=== PATIENT | male | born 1930 | race Caucasian/White ===

== ENCOUNTER 2018-05-21 07:01 | Inpatient (IN) | payer OTHER ==
--- NOTE | 2018-05-21 07:52 | PDOC ---
Attending Attestation - Resident Resident Name: Latesha Cooley - HPI HPI: 05/21/18 08:18 Pt presents to the ED after sent in by [place] for altered mental status and difficulty breathing. Patient has a history of alzheimers, HTN, CHF and COPD. Non verbal and incontient of urine and feces at baseline. Patient withdraws to sternal rub but does not open eyes or follow commands. Unable to give history. 05/21/18 09:35 05/21/18 09:40 - Physicial Exam PE: 05/21/18 09:44 Agree with resident exam. Patinet is lethargic and withdraws to sternal rub. + crackles at the bases b/l. Heart tachycardic, regular rate and rhythm. abdomen soft, non tender, non distended. + 2 pitting edema to mid calf b/l. 05/21/18 09:47 - Critical Care Time Total Critical Care Time: 60 Critical Care Statement: The care of this patient involved high complexity decision making to prevent further life threatening deterioration of the patient 's condition and/or to evaluate & treat vital organ system(s) failure or risk of failure. - Medical Decision Making 05/21/18 09:48 Pt presents to the ED after sent in for altered mental status. Found to be febrile and lethargic in the ED. 1. sepsis: lactate is normal, but patient has elevated WBC count and fever. Will check blood and urine cx and treat with vancomycin and zosyn. 2. acidosis: bicarb is normal, no anion gap. May be respiratory--will check ABG 3. Altered mental status: secondary to sepsis vs intracranial lession or bleed. Will check CT head. Will admit to medicine for continued work up; 05/21/18 14:09 Case discussed with ICU attending, who has accepted the patient to the ICU. Patient
[2018-05-21] MEDS ORDERED: ACETAMINOPHEN 1000 MG/100 ML VIAL (NON FORMULARY) IVPB ONE (08:00)
[2018-05-21] MEDS ORDERED: ACETAMINOPHEN INJECTION 100 ML IVPB ONE (08:09)
[2018-05-21 08:32] LABS: VENOUS PC02 66.7 mmHg (38-52); VENOUS PH 7.25 (7.32-7.42); VENOUS PO2 94.9 mmHg (28-48)
[2018-05-21 08:40] LABS: BASO % 0.2 % (0-2.0); EOS % 0.1 % (0-4.5); HEMATOCRIT 30.1 % (35.4-49); HEMOGLOBIN 10.2 GM/dL (11.7-16.9); LYMPH % 2.5 % (8-40); MCH 31.4 pg (25.7-33.7); MCHC 33.8 g/dl (32.0-35.9); MEAN CELL VOLUME 92.9 fl (80-96); MEAN PLT VOLUME 9.4 fl (7.5-11.1); MONO % 10.4 % (3.8-10.2); NEUT % 86.8 % (42.8-82.8); PLATELET COUNT 112 K/MM3 (134-434); RBC 3.24 M/mm3 (4.00-5.60); RDW 18.2 % (11.9-15.9)
[2018-05-21 08:47] LABS: INR 1.05 (0.83-1.09); PROTHROMBIN TIME (PATIENT) 12.4 SEC (9.7-13.0)
[2018-05-21 08:50] LABS: ACTIVATED PTT 31.1 SECONDS (25.2-36.5)
[2018-05-21 08:57] LABS: ALK PHOS 122 U/L (45-117); ANION GAP 9 MMOL/L (8-16); BILIRUBIN,TOTAL 0.6 mg/dL (0.2-1); BLOOD UREA NITROGEN 59 mg/dL (7-18); CALCIUM 8.2 mg/dL (8.5-10.1); CHLORIDE 103 mmol/L (98-107); CO2 28 mmol/L (21-32); CREATININE 2.2 mg/dL (0.55-1.3); GLUCOSE,RANDOM 101 mg/dL (74-106); POTASSIUM 4.5 mmol/L (3.5-5.1); SGOT/AST 16 U/L (15-37); SGPT/ALT 25 U/L (13-61); SODIUM 139 mmol/L (136-145); TOT PROT 6.4 g/dl (6.4-8.2)
--- NOTE | 2018-05-21 09:00 | PDOC ---
History of Present Illness - General Chief Complaint: SIRS, Suspected/Possible Stated Complaint: FEVER Time Seen by Provider: 05/21/18 07:28 History Source: Family - History of Present Illness Initial Comments: 05/21/18 08:48 87 year old patient with history HTN, COPD, CHF, severe Alzheimers who presents with altered mental status and low grade fever per nursing staff. The patient had worsening chronic cough, decreased urine production and darkening of the urine, more lethargic appearing and opening his eyes less. At baseline the patient is minimally verbal but can open his eyes and is alert. 05/21/18 08:50 [facility] contacted: provided information the patient has HTN, COPD, CHF and severe Alzheimers, is very minimally verbal, and required assistance in all ADLS by nursing. The patient was brought into the ED as he was less responsive, breathing heavily and had a low grade temp. The patient was previously a surgeon. Medications include: cold - robutussin for 5 day nidfedeipine 60 seroquel 50mg memantine/dop atrovent neb bid at bedside is not sure whether is DNR or DNI would like us to call the pt' s son. Past History - Past Medical History Allergies/Adverse Reactions: Allergies Allergy/AdvReac Type Severity Reaction Status Date / Time No Known Allergies Allergy Verified 05/21/18 07:20 Home Medications: Ambulatory Orders Cholecalciferol (Vitamin D3) [Vitamin D3] 400 unit PO DAILY 05/21/18 Donepezil HCl 10 mg PO HS 05/21/18 Ferrous Sulfate [Iron] 325 mg PO BID 05/21/18 Guaifenesin 100 mg PO BID 05/21/18 Ipratropium [place] 0.2 mg IH DAILY 05/21/18 Nifedipine [Nifedipine ER] 60 mg PO DAILY 05/21/18 Psyllium Husk (with Sugar) [Metamucil Packet] 3.4 gm PO DAILY 05/21/18 Quetiapine Fumarate [Quetiapine Fumarate ER] 50 mg PO DAILY 05/21/18 Cardiac Disorders: Yes (CAD) COPD: No CHF: Yes HTN: Yes Hypercholesterolemia: Yes Psychiatric Problems: Yes (depression) - Suicide/Smoking/Psychosocial Hx Smoking History: Unknown if ever smoked Have you smoked in the past 12 months: No Information on smoking cessation initiated: No Hx Alcohol Use: No Drug/Substance Use Hx: No Substance Use Type: None Review of Systems - Review of Systems Able to Perform ROS?: No (altered) *Physical Exam - Vital Signs Last Vital Signs Temp Pulse Resp BP Pulse Ox 90 26 H 131/77 100 05/21/18 07:21 05/21/18 07:21 05/21/18 07:21 05/21/18 07:21 - Physical Exam Comments: 05/21/18 09:09 GENERAL: Altered, unresponsive, can arouse minimally to sternal rub HEAD: No signs of trauma, normocephalic, atraumatic EYES: pinpoint nonreactive to light, sclera anicteric, conjunctiva clear, crusting around the eyelids ENT: oropharynx clear without exudates. Moist mucosa NECK: Normal ROM, supple LUNGS: coarse breath sounds and crackles in all lobes anteriorly. HEART: distant heart sounds, no murmurs, rubs or gallops, peripheral pulses normal and equal bilaterally. ABDOMEN: Soft, nontender, normoactive bowel sounds. No guarding, no rebound. No masses EXTREMITIES : 1+ pitting in knees to ankles bilaterally, palpable pulses NEUROLOGICAL: Unresponsive. SKIN: Dry, normal turgor, no rashes or lesions noted ED Treatment Course - LABORATORY CBC & Chemistry Diagram: 05/22/18 05:30 05/22/18 05:30 - ADDITIONAL ORDERS Additional order review: Laboratory Results 05/21/18 05/21/18 08:07 08:07 PT with INR 12.40 INR 1.05 VBG pH 7.25 L POC VBG pCO2 66.7 H* POC VBG pO2 94.9 H Mixed VBG HCO3 27.9 H - RADIOLOGY Radiology Studies Ordered: Category Date Time Status CHEST X-RAY PORTABLE* [RAD] Stat Radiology 05/21/18 07:28 Taken - Medications Given in the ED: ED Medications Discontinued Medications Generic Name Dose Route Start Last Admin Trade Name Freq PRN Reason Stop Dose Admin Acetaminophen 1,000 mg 05/21/18 08:00 05/21/18 08:15 Ofirmev Injection - IVPB 05/21/18 08:01 1,000 mg ONCE ONE Administration Medical Decision Making - Medical Decision Making 05/21/18 09:08 87 year old patient with history HTN, COPD, CHF, severe Alzheimers who presents with altered mental status and low grade fever per nursing staff. The patient had worsening chronic cough, decreased urine production and darkening of the urine, more lethargic appearing and opening his eyes less. At baseline the patient is minimally verbal but can open his eyes and is alert. DDX including but not limited to: hypogylcemia vs intracranial bleed vs UTI vs PNA vs electrolyes abnormality W/U: - head CT - cbc, cmp, lactic, trop, blood cx, PT/INR, PTT - CXR - ua, ucx TX: - duoneb ED Course: Patient received duoneb treatment en route. 05/21/18 10:11 CXR: R upper lobe infiltrate, cardiomegaly and central congestive changes. Vancomycin and Zosyn given 05/21/18 12:00 patient with hematuria - alejandro placed by attending Attending discussed case with ICU. Will have patient with BIPAP for bridging and go to ICU floor. BIPAP: 16/5, 12, 60% 05/21/18 12:48 Dr. Malagon contacted will accept patient. Will come down to see patient. Notes that DNR and DNI has been an issue with this patient and family. Patient becoming more alert. Alejandro placed by attending without complications. Patient clinically showing some improvement. Patient admitted to medicine and ICU. *DC/Admit/Observation/Transfer Diagnosis at time of Disposition: Altered mental status - Discharge Dispostion Condition at time of disposition: Stable Decision to Admit order: Yes - Referrals - Patient Instructions - Post Discharge Activity
[2018-05-21] MEDS ORDERED: PIPERACILLIN/TAZOB 3.375 GM 3.375 GM in DEXTROSE 5%-WATER - 50 ML IVPB ONE (09:46)
[2018-05-21 10:14] LABS: ARTERIAL BLD GAS O2 SATURATION 97.5 % (90-98.9); ARTERIAL BLOOD GAS PCO2 58.6 mmHg (35-45); ARTERIAL BLOOD GAS pH 7.29 (7.35-7.45)
[2018-05-21 10:15] LABS: ARTERIAL BLOOD GAS BASE EXCESS 0.1 meq/l (-2-2); CARBOXYHEMOGLOBIN 0.8 gm% (0.5-2.0)
[2018-05-21 10:43] LABS: N-TERMINAL BNP 3620.6 pg/ml (5-450)
[2018-05-21] MEDS ORDERED: PIPERACILLIN/TAZOB 3.375 GM 3.375 GM/50 ML BAG IVPB ONE ×2 (10:51→18:04)
[2018-05-21] MEDS ORDERED: ALBUTEROL SO4 2.5/IPRATROPIUM 0.5 INH SOL 3 ML VIAL.NEB. NEB ONE ×5 (11:13→20:18)
[2018-05-21] MEDS ORDERED: methylPREDNISolone NA SUCC 125 MG/2 ML VIAL ONE ×2 (11:19→18:04)
[2018-05-21] MEDS ORDERED: VANCOMYCIN 1 GRAM (PRE-DOCKED) 1,000 MG/250 ML BAG IVPB ONE (11:25)
[2018-05-21 12:34] LABS: URINE APPEARANCE CLOUDY; URINE BILIRUBIN NEGATIVE (<2.0 mg/dL); URINE COLOR YELLOW; URINE GLUCOSE (UA) NEGATIVE (NEGATIVE); URINE KETONE NEGATIVE (NEGATIVE); URINE LEUK ESTERASE NEGATIVE (NEGATIVE); URINE NITRITE NEGATIVE (NEGATIVE); URINE PROTEIN 2+ (NEGATIVE); URINE UROBILINOGEN NEGATIVE mg/dL (0.2-1.0)
--- NOTE | 2018-05-21 12:34 | EKG ---
Test Reason : Blood Pressure : / mmHG Vent. Rate : 069 BPM Atrial Rate : 069 BPM P-R Int : 212 ms QRS Dur : 126 ms QT Int : 406 ms P-R-T Axes : -01 -01 012 degrees QTc Int : 435 ms SINUS RHYTHM WITH 1ST DEGREE A-V BLOCK RIGHT BUNDLE BRANCH BLOCK ABNORMAL ECG NO PREVIOUS ECGS AVAILABLE Confirmed by JC SOTOMAYOR MD ([id number]) on 05/21/2018 12:34:03 PM Referred By: Confirmed By:JC SOTOMAYOR MD
[2018-05-21 12:51] LABS: URINE MUCUS RARE
--- NOTE | 2018-05-21 14:49 | HP ---
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 EMS was called and patient was transfered to [facility]. Staff contacted, patient was at baseline yesterday, he is minimally verbal, and sleeps many hours during the day. There was no hx of fever / chills / or progressive deterioration. 05/21/18 08:50 [facility] contacted: Information obtained from staff: The patient has HTN, COPD, CHF and severe Alzheimers, is very minimally verbal, and required assistance in all ADLS by nursing. The patient was brought into the ED as he was less responsive, breathing heavily and had a low grade temp. The patient was previously a surgeon. Medications include: cold - robutussin for 5 day nidfedeipine 60 seroquel 50mg memantine/dop atrovent neb bid at bedside is not sure whether is DNR or DNI would like us to call the pt' s son. History Source: Family Member, Medical Record, Transfer Record Limitations to Obtaining History: Dementia - Past Medical History PRESSURE WELDER: Yes: Dementia Pulmonary: Yes: COPD - Smoking History Smoking history: Unknown if ever smoked Have you smoked in the past 12 months: No - Alcohol/Substance Use Hx Alcohol Use: No History of Substance Use: reports: None - Social History Usual Living Arrangement: Yes: Assisted Living ADL: Support Services History of Recent Travel: No Home Medications - Allergies Allergies/Adverse Reactions: Allergies Allergy/AdvReac Type Severity Reaction Status Date / Time No Known Allergies Allergy Verified 05/21/18 07:20 - Home Medications Home Medications: Ambulatory Orders Cholecalciferol (Vitamin D3) [Vitamin D3] 400 unit PO DAILY 05/21/18 Donepezil HCl 10 mg PO HS 05/21/18 Ferrous Sulfate [Iron] 325 mg PO BID 05/21/18 Guaifenesin 100 mg PO BID 05/21/18 Ipratropium [place] 0.2 mg IH DAILY 05/21/18 Nifedipine [Nifedipine ER] 60 mg PO DAILY 05/21/18 Psyllium Husk (with Sugar) [Metamucil Packet] 3.4 gm PO DAILY 05/21/18 Quetiapine Fumarate [Quetiapine Fumarate ER] 50 mg PO DAILY 05/21/18 Review of Systems Unable to obtain ROS, reason: dementia - - Review of Systems Constitutional: denies: Chills, Fever, Night Sweats Eyes: reports: No Symptoms HENT: reports: No Symptoms Neck: reports: No Symptoms Respiratory: reports: Cough (unclear), SOB Neurological: reports: Pre-Existing Deficit Physical Examination Vital Signs: Vital Signs Temperature 101.5 F H 05/21/18 07:28 Pulse Rate 60 05/21/18 14:14 Respiratory Rate 18 05/21/18 14:14 Blood Pressure 129/56 L 05/21/18 14:14 O2 Sat by Pulse Oximetry (%) 95 05/21/18 14:14 Findings/Remarks: patient seen in ER Bipap in place O2 tapered to 60% with sats 99 -100% and caregiver at bed side hx obtained from / [facility] at [facility] / aide reports signed a DNR yrs ago when clear of mind she is awaiting patients son to make advance directives Constitutional: Yes: Well Nourished, No Distress, Calm, Other (bipap in place) Eyes: Yes: WNL HENT: Yes: WNL, Atraumatic, Normocephalic Neck: Yes: Supple, Trachea Midline Cardiovascular: Yes: Regular Rate and Rhythm Respiratory: Yes: Diminished, On BiPap Gastrointestinal: Yes: Normal Bowel Sounds, Soft, Abdomen, Obese ...Rectal Exam: Yes: Deferred Renal/: Yes: WNL Breast(s): Yes: WNL Musculoskeletal: Yes: Other (at baseline wheelchair bound) Edema: Yes Edema: LLE: 1+, RLE: 1+ Peripheral Pulses WNL: Yes Integumentary: Yes: WNL Neurological: Yes: Pre-Existing Deficit Labs: CBC, BMP 05/21/18 08:07 05/21/18 08:07 Problem List - Problems (1) Aspiration pneumonia of right lung Code(s): J69.0 - PNEUMONITIS DUE TO INHALATION OF FOOD AND VOMIT (2) COPD (chronic obstructive pulmonary disease) Code(s): J44.9 - CHRONIC OBSTRUCTIVE PULMONARY DISEASE, UNSPECIFIED (3) Dementia Code(s): F03.90 - UNSPECIFIED DEMENTIA WITHOUT BEHAVIORAL DISTURBANCE (4) Hypertension Code(s): I10 - ESSENTIAL (PRIMARY) HYPERTENSION
[2018-05-21] MEDS ORDERED: AZITHROMYCIN IVPB 500 MG/250 ML BAG IVPB ONE ×2 (15:15→16:18)
--- NOTE | 2018-05-21 15:32 | CON.ID ---
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's disease, now in the dementia unit for the last one year worsening mental status over the last one month he has a 24 hour aides mainly uses a wheelchair on he was very weak, yesterday he was lethargic this morning the aide couldn't arouse him and they called 911 in the ED he had a temp of 101.5 and was hypercapneic and hypoxic with a RUL infiltrate currently on bipap 60% +incontinence at baseline, needs help with ADLS occasionally recognizes his had not been hospitalized for several years - History Source History Provided By: Family Member Limitations to Obtaining History: Clinical Condition - Past Medical History 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 Cardio/Vascular: Yes: CHF, HTN Pulmonary: Yes: COPD - Alcohol/Substance Use Hx Alcohol Use: No History of Substance Use: reports: None - Smoking History Smoking history: Unknown if ever smoked Have you smoked in the past 12 months: No - Social History Usual Living Arrangement: Assisted Living ADL: Support Services Occupation: retired physician History of Recent Travel: No Home Medications - Allergies Allergies/Adverse Reactions: Allergies Allergy/AdvReac Type Severity Reaction Status Date / Time No Known Allergies Allergy Verified 05/21/18 07:20 - Home Medications Home Medications: Ambulatory Orders Cholecalciferol (Vitamin D3) [Vitamin D3] 400 unit PO DAILY 05/21/18 Donepezil HCl 10 mg PO HS 05/21/18 Ferrous Sulfate [Iron] 325 mg PO BID 05/21/18 Guaifenesin 100 mg PO BID 05/21/18 Ipratropium [place] 0.2 mg IH DAILY 05/21/18 Nifedipine [Nifedipine ER] 60 mg PO DAILY 05/21/18 Psyllium Husk (with Sugar) [Metamucil Packet] 3.4 gm PO DAILY 05/21/18 Quetiapine Fumarate [Quetiapine Fumarate ER] 50 mg PO DAILY 05/21/18 Family Disease History - Family Disease History Family History: Unable to Obtain Review of Systems - Review of Systems Constitutional: reports: Lethargy Cardiovascular: reports: Chest Pain Respiratory: reports: SOB Physical Exam Vital Signs: Vital Signs Temperature 98.0 F 05/21/18 15:12 Pulse Rate 63 05/21/18 15:12 Respiratory Rate 18 05/21/18 15:12 Blood Pressure 126/51 L 05/21/18 15:12 O2 Sat by Pulse Oximetry (%) 98 05/21/18 15:12 Constitutional: Yes: Well Nourished, No Distress Eyes: Yes: Conjunctiva Clear HENT: Yes: Atraumatic, Normocephalic Neck: Yes: Supple Cardiovascular: Yes: Regular Rate and Rhythm Respiratory: Yes: Diminished, Wheezes Gastrointestinal: Yes: Normal Bowel Sounds, Soft. No: Tenderness ...Rectal Exam: Yes: Deferred Edema: Yes Edema: LLE: Trace, RLE: Trace Labs: CBC, BMP 05/21/18 08:07 05/21/18 08:07 Imaging - Results Chest X-ray: Report Reviewed, Image Reviewed Cat Scan: Report Reviewed Problem List - Problems (1) Aspiration pneumonia of right lung Code(s): J69.0 - PNEUMONITIS DUE TO INHALATION OF FOOD AND VOMIT (2) Respiratory failure with hypoxia and hypercapnia Code(s): J96.91 - RESPIRATORY FAILURE, UNSPECIFIED WITH HYPOXIA; J96.92 - RESPIRATORY FAILURE, UNSPECIFIED WITH HYPERCAPNIA (3) Dementia Code(s): F03.90 - UNSPECIFIED DEMENTIA WITHOUT BEHAVIORAL DISTURBANCE (4) NATE (acute kidney injury) Code(s): N17.9 - ACUTE KIDNEY FAILURE, UNSPECIFIED Assessment/Plan hypoxemic/hypercapneic resp failure- on bipap aspiration pneumonia continue zosyn add zithromax severe progressive dementia nate cultures legionella urinary antigen d/w Dr Allred
[2018-05-21] MEDS ORDERED: DEXTROSE 5%-0.45% SALINE 1,000 ML IV SCH (15:45)
[2018-05-21] MEDS ORDERED: ALBUTEROL SO4 2.5/IPRATROPIUM 0.5 INH SOL 3 ML VIAL.NEB. NEB PRN (15:48)
[2018-05-21] MEDS: ALBUTEROL SO4 2.5/IPRATROPIUM 0.5 INH SOL 3 ML VIAL.NEB. NEB SCH ×2 (16:34→20:22)
[2018-05-21] MEDS: methylPREDNISolone NA SUCC 125 MG/2 ML VIAL IVPUSH SCH (18:07)
[2018-05-21] MEDS: PIPERACILLIN/TAZOB 3.375 GM 3.375 GM in DEXTROSE 5%-WATER - 50 ML IVPB SCH (18:07)
--- NOTE | 2018-05-21 21:11 | PN ---
Progress Note (short form) - Note Progress Note: Mohan I had the opportunity to speak with the Surrogate of Highest Order, Marlin Garcia, of Mr Sesay in the presence and with the support of close family members including his son and daughter. Based on previously stated wishes and with best interest standard in mind, the family in consensus have decided to make him DNR/DNI. They ask that current treatment be maintained, that a 24hr trial of NIV be continued but that he not undergo any more advanced life saving measures should he deteriorate. They asked that his comfort be of the highest priority and that they be notified of his status and condition should there be significant changes. All questions were answered. DNR/DNI order placed. Ad Blount ACNP [id number]
--- NOTE | 2018-05-21 21:31 | CONSULT ---
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 He was placed on NIVPPV, HCAP coverage, and nebs and steroids. There was conversations with family regarding GOC, he is now DNR/DNI but with current care continuing. Ambulatory Order Cholecalciferol (Vitamin D3) [Vitamin D3] 400 unit PO DAILY 05/21/18 Donepezil HCl 10 mg PO HS 05/21/18 Ferrous Sulfate [Iron] 325 mg PO BID 05/21/18 Guaifenesin 100 mg PO BID 05/21/18 Ipratropium Springer 0.2 mg IH DAILY 05/21/18 Nifedipine [Nifedipine ER] 60 mg PO DAILY 05/21/18 Psyllium Husk (with Sugar) [Metamucil Packet] 3.4 gm PO DAILY 05/21/18 Quetiapine Fumarate [Quetiapine Fumarate ER] 50 mg PO DAILY 05/21/18 Social History Smoking history Unknown if ever smoked Have you smoked in the past 12 No months Hx Alcohol Use No History of Substance Use None Usual Living Arrangement Assisted Living ADL Support Services Occupation retired physician Past Medical History TRAINING EXECUTIVE Dementia Cardio/Vascular CHF,HTN Pulmonary COPD Family hx non contrib. Lab Results WBC 17.0 K/mm3 (4.0-10.0) H 05/21/18 08:07 RBC 3.24 M/mm3 (4.00-5.60) L 05/21/18 08:07 Hgb 10.2 GM/dL (11.7-16.9) L 05/21/18 08:07 Hct 30.1 % (35.4-49) L 05/21/18 08:07 MCV 92.9 fl (80-96) 05/21/18 08:07 MCHC 33.8 g/dl (32.0-35.9) 05/21/18 08:07 RDW 18.2 % (11.9-15.9) H 05/21/18 08:07 Plt Count 112 K/MM3 (134-434) L 05/21/18 08:07 Sodium 139 mmol/L (136-145) 05/21/18 08:07 Potassium 4.5 mmol/L (3.5-5.1) 05/21/18 08:07 Chloride 103 mmol/L (98-107) 05/21/18 08:07 Carbon Dioxide 28 mmol/L (21-32) 05/21/18 08:07 Anion Gap 9 MMOL/L (8-16) 05/21/18 08:07 BUN 59 mg/dL (7-18) H 05/21/18 08:07 Creatinine 2.2 mg/dL (0.55-1.3) H 05/21/18 08:07 Random Glucose 101 mg/dL (74-106) 05/21/18 08:07 Calcium 8.2 mg/dL (8.5-10.1) L 05/21/18 08:07 INR 1.05 (0.83-1.09) 05/21/18 08:07 ABG Results ABG pH 7.29 (7.35-7.45) L 05/21/18 09:54 ABG pCO2 at Pt Temp 58.6 mmHg (35-45) H 05/21/18 09:54 ABG pO2 at Pt Temp 175.0 mmHg (68-100) H* 05/21/18 09:54 ABG HCO3 27.1 meq/L (22-26) H 05/21/18 09:54 ABG O2 Sat (Measured) 97.5 % (90-98.9) 05/21/18 09:54 ABG O2 Content 14.9 % vol (15-22) L 05/21/18 09:54 ABG Base Excess 0.1 meq/l (-2-2) 05/21/18 09:54 Medications include: cold - robutussin for 5 day nidfedeipine 60 seroquel 50mg memantine/dop atrovent neb bid Current Medications Albuterol/Ipratropium (Duoneb -) 1 amp NEB Q4H PRN PRN Reason: SHORTNESS OF BREATH Albuterol/Ipratropium (Duoneb -) 1 amp NEB RQID DESTINEE Last Admin: 05/21/18 20:22 Dose: 1 amp Heparin Sodium (Porcine) (Heparin -) 5,000 unit SQ TID DESTINEE Piperacillin Sod/Tazobactam (Sod 3.375 gm/ Dextrose) 50 mls @ 100 mls/hr IVPB Q8H-IV DESTINEE; Protocol Last Admin: 05/21/18 18:07 Dose: 100 mls/hr Dextrose/Sodium Chloride (D5-1/2ns -) 1,000 mls @ 100 mls/hr IV ASDIR DESTINEE Last Admin: 05/21/18 16:34 Dose: 100 mls/hr Methylprednisolone Sodium Succinate (Solu-Medrol -) 60 mg IVPUSH Q8H-IV DESTINEE Last Admin: 05/21/18 18:07 Dose: 60 mg Pantoprazole Sodium (Protonix Iv) 40 mg IVPUSH DAILY [facility] CXR : image reviewed EKG: ST, no acute ischemic changes PE: Gen: eld man, obtunded on NIV HEENT: PERRL, trach midline, supple CV; RRR, no m/r/g appreciated Pulm: few coarse crackles, no wheezes ABD: obese, soft EXT: 2+ dependent edema Neuro: poorly responsive, withdrawals bilaterally A/ 87 y/o man, advanced dementia, p/w multifocal pneumonia and respiratory failure, made DNR/DNI P/ -cont NIV, will remove in am and palliate if in distress as per family wishes -duonebs q4 hrs and prn -cont medrol -gentle diuresis, monitor Cr -Vanc and PT as per ID -HC bid -DNR/DNI -SCD ICU monitoring Jose Alejandro GUEVARAP [id number] 35min CCT
[2018-05-21] MEDS ORDERED: FUROSEMIDE 40 MG/4 ML INJECTABLE VIAL IVPUSH ONE (21:50)
[2018-05-21] MEDS ORDERED: PIPERACILLIN/TAZOBACTAM 3.375 GM VIAL IVPB ONE (21:56)
[2018-05-21] MEDS ORDERED: DEXTROSE 5%-WATER - 50 ML IVPB ONE (21:57)
[2018-05-21] MEDS: HEPARIN NA (PORCINE) 5,000 UNITS/ML 1ML VIAL SQ SCH (21:59)
[2018-05-22] MEDS ORDERED: PIPERACILLIN/TAZOBACTAM 3.375 GM VIAL IVPB ONE ×2 (00:48→11:42)
[2018-05-22] MEDS ORDERED: DEXTROSE 5%-WATER - 50 ML IVPB ONE ×2 (00:48→11:43)
[2018-05-22] MEDS: methylPREDNISolone NA SUCC 125 MG/2 ML VIAL IVPUSH SCH ×3 (01:05→17:34)
[2018-05-22] MEDS: PIPERACILLIN/TAZOB 3.375 GM 3.375 GM in DEXTROSE 5%-WATER - 50 ML IVPB SCH ×2 (01:05→11:46)
[2018-05-22] MEDS: HEPARIN NA (PORCINE) 5,000 UNITS/ML 1ML VIAL SQ SCH ×3 (05:44→21:18)
[2018-05-22 06:22] LABS: ALBUMIN 2.8 g/dl (3.4-5.0); ALK PHOS 110 U/L (45-117); ANION GAP 6 MMOL/L (8-16); BILIRUBIN,TOTAL 0.6 mg/dL (0.2-1); BLOOD UREA NITROGEN 62 mg/dL (7-18); CALCIUM 8.1 mg/dL (8.5-10.1); CHLORIDE 101 mmol/L (98-107); CO2 31 mmol/L (21-32); CREATININE 2.5 mg/dL (0.55-1.3); GLUCOSE,RANDOM 137 mg/dL (74-106); POTASSIUM 4.9 mmol/L (3.5-5.1); SGOT/AST 13 U/L (15-37); SGPT/ALT 25 U/L (13-61); SODIUM 138 mmol/L (136-145); TOT PROT 6.6 g/dl (6.4-8.2)
[2018-05-22 07:17] LABS: HEMATOCRIT 30.8 % (35.4-49); HEMOGLOBIN 10.3 GM/dL (11.7-16.9); MCH 31.5 pg (25.7-33.7); MCHC 33.3 g/dl (32.0-35.9); MEAN CELL VOLUME 94.5 fl (80-96); MEAN PLT VOLUME 10.1 fl (7.5-11.1); PLATELET COUNT 100 K/MM3 (134-434); RBC 3.26 M/mm3 (4.00-5.60); RDW 18.1 % (11.9-15.9); WHITE BLOOD COUNT 25.8 K/mm3 (4.0-10.0)
[2018-05-22] MEDS: ALBUTEROL SO4 2.5/IPRATROPIUM 0.5 INH SOL 3 ML VIAL.NEB. NEB SCH ×4 (07:30→20:35)
--- NOTE | 2018-05-22 08:43 | PN ---
Progress Note (short form) - Note Progress Note: Pulm/CCM Progress Note Pt seen and examined in the ICU 24Hr; -wbc rising -on NIV overnight, taken off this am for pooling oral secretions -still with increases wob -Cr rising, with diuretics -DNR/DNI after discussion with family/ -afebrile, stable hemodynamics Vital Signs Temp 97.4 F L 05/22/18 02:00 Pulse 73 05/22/18 06:00 Resp 24 H 05/22/18 06:00 BP 147/77 05/22/18 06:00 Pulse Ox 99 05/22/18 05:34 Intake & Output 05/21/18 05/21/18 05/22/18 11:59 23:59 10:59 Intake Total 20 50 Output Total 100 800 Balance -80 -750 Weight 127.006 kg 111.765 kg 110.994 kg Intake: IVPB 20 50 Output: Urine 100 800 Denis 100 800 Other: Voiding Method Indwelling Catheter Bowel Movement No Yes: pasty, medium, black Height 6 ft 6 ft Body Mass Index (BMI) 38.0 33.4 Weight Measurement Method Built in Bedscale Built in [facility] Laboratory Results - last 24 hr 05/21/18 05/21/18 05/21/18 08:07 09:54 11:30 WBC RBC Hgb Hct MCV MCH MCHC RDW Plt Count MPV Anticoagulation Therapy No Result Required. Puncture Site No Result Required. ABG pH 7.29 L ABG pCO2 at Pt Temp 58.6 H ABG pO2 at Pt Temp 175.0 H* ABG HCO3 27.1 H ABG O2 Sat (Measured) 97.5 ABG O2 Content 14.9 L ABG Base Excess 0.1 Doc Test Not applicable Carboxyhemoglobin 0.8 Methemoglobin 1.5 O2 Delivery Device No Result Required. Oxygen Flow Rate Yes Vent Mode No Result Required. Vent Rate No Result Required. Mechanical Rate No Result Required. Pressure Support Vent No Result Required. Sodium Potassium Chloride Carbon Dioxide Anion Gap BUN Creatinine Creat Clearance w eGFR Random Glucose Calcium Total Bilirubin AST ALT Alkaline Phosphatase Troponin I 0.05 B-Natriuretic Peptide 3620.6 H Total Protein Albumin Urine Color Yellow Urine Appearance Cloudy Urine pH 5.0 Ur Specific [place] 1.017 Urine Protein 2+ H Urine Glucose (UA) Negative Urine Ketones Negative Urine Blood 3+ H Urine Nitrite Negative Urine Bilirubin Negative Urine Urobilinogen Negative Ur Leukocyte Esterase Negative Urine WBC (Auto) 65 Urine RBC (Auto) 195 Urine Mucus Rare 05/22/18 05/22/18 05:30 05:30 WBC 25.8 H RBC 3.26 L Hgb 10.3 L Hct 30.8 L MCV 94.5 MCH 31.5 MCHC 33.3 RDW 18.1 H Plt Count 100 L MPV 10.1 Anticoagulation Therapy Puncture Site ABG pH ABG pCO2 at Pt Temp ABG pO2 at Pt Temp ABG HCO3 ABG O2 Sat (Measured) ABG O2 Content ABG Base Excess Doc Test Carboxyhemoglobin Methemoglobin O2 Delivery Device Oxygen Flow Rate Vent Mode Vent Rate Mechanical Rate Pressure Support Vent Sodium 138 Potassium 4.9 Chloride 101 Carbon Dioxide 31 Anion Gap 6 L BUN 62 H Creatinine 2.5 H Creat Clearance w eGFR 24.55 Random Glucose 137 H Calcium 8.1 L Total Bilirubin 0.6 AST 13 L ALT 25 Alkaline Phosphatase 110 Troponin I B-Natriuretic Peptide Total Protein 6.6 Albumin 2.8 L Urine Color Urine Appearance Urine pH Ur Specific [place] Urine Protein Urine Glucose (UA) Urine Ketones Urine Blood Urine Nitrite Urine Bilirubin Urine Urobilinogen Ur Leukocyte Esterase Urine WBC (Auto) Urine RBC (Auto) Urine Mucus CXR reviewed: RUL infiltratre, hazy diffuse, vasc congestion PE: Gen: obtunded, moderate resp distres HEENT: PERRL, trach midline, upper airway secretions PULM: coarse rhonchi, paradox breathing CV: tachy, regular ABD: obese, soft EXT: 1+ dependent edema Neuro: poorly responsive, withdrawals to noxious bilaterally A/ 87 y/o man with advance dementia, now with NATE, multifocal pna, hypercapneic resp failure P/ -DNR/DNI, no more NIV as per family, family gathering -morphine for dyspnea -cont abx for now, will discuss discontinuing once family arrives -no further diuresis given rising Cr on negative fluid balance, goal even -NT suctioning -NPO 35CCT Ad Blount ACNP [id number]
--- NOTE | 2018-05-22 13:06 | PN ---
Progress Note (short form) - Note Progress Note: remains lethargic on ventimask family at bedside moves his hand to adjust the ventimask Vital Signs Period Temp Pulse Resp BP Sys/Patel Pulse Ox Last 24 Hr 96.9 F-98.0 F 58-82 18-26 126-167/51-102 92-100 cor-rrr llungs decreased bs at bases abd soft,nt ext trace edema CBC, BMP 05/22/18 05:30 05/22/18 05:30 Microbiology 05/21/18 08:00 Urine For Antigen Detection Legionella Antigen - Final 05/21/18 08:00 Urine For Antigen Detection Streptococcus pneumoniae Antigen (M - Final-positive pneumococal antigen 05/21/18 11:30 Urine - Urine Clean Catch Urine Culture - Final NO GROWTH OBTAINED 05/21/18 08:07 Blood - Peripheral Venous Blood Culture - Preliminary NO GROWTH OBTAINED AFTER 24 HOURS, INCUBATION TO CONTINUE FOR 4 DAYS. 05/21/18 08:07 Blood - Peripheral Venous Blood Culture - Preliminary NO GROWTH OBTAINED AFTER 24 HOURS, INCUBATION TO CONTINUE FOR 4 DAYS. Current Medications Albuterol/Ipratropium (Duoneb -) 1 amp NEB Q4H PRN PRN Reason: SHORTNESS OF BREATH Albuterol/Ipratropium (Duoneb -) 1 amp NEB RQID DESTINEE Last Admin: 05/22/18 12:59 Dose: 1 amp Heparin Sodium (Porcine) (Heparin -) 5,000 unit SQ TID DESTINEE Last Admin: 05/22/18 05:44 Dose: 5,000 unit Piperacillin Sod/Tazobactam (Sod 3.375 gm/ Dextrose) 50 mls @ 100 mls/hr IVPB Q8H-IV DESTINEE; Protocol Last Admin: 05/22/18 11:46 Dose: 100 mls/hr Methylprednisolone Sodium Succinate (Solu-Medrol -) 60 mg IVPUSH Q8H-IV DESTINEE Last Admin: 05/22/18 01:05 EST Dose: 60 mg Pantoprazole Sodium (Protonix Iv) 40 mg IVPUSH DAILY DESTINEE a/p pneumococcal pneumonia worsening dementia dnr/dni nate switch to rocephin Problem List - Problems (1) Aspiration pneumonia of right lung Code(s): J69.0 - PNEUMONITIS DUE TO INHALATION OF FOOD AND VOMIT (2) Respiratory failure with hypoxia and hypercapnia Code(s): J96.91 - RESPIRATORY FAILURE, UNSPECIFIED WITH HYPOXIA; J96.92 - RESPIRATORY FAILURE, UNSPECIFIED WITH HYPERCAPNIA (3) Dementia Code(s): F03.90 - UNSPECIFIED DEMENTIA WITHOUT BEHAVIORAL DISTURBANCE (4) NATE (acute kidney injury) Code(s): N17.9 - ACUTE KIDNEY FAILURE, UNSPECIFIED
[2018-05-22] MEDS ORDERED: DEXTROSE 5%-WATER 100 ML IVPB ONE (15:17)
[2018-05-22] MEDS: CEFTRIAXONE 2 GM in DEXTROSE 5%-WATER 100 ML IVPB SCH (15:19)
--- NOTE | 2018-05-22 16:20 | PN ---
Progress Note (short form) - Note Progress Note: patient seen and examined in ICU Family at bedside discussed prognosis with and 2 children aware this is likely a terminal event On ventimask -- O2 sat 96 Vital Signs Period Temp Pulse Resp BP Sys/Patel Pulse Ox Last 24 Hr 96.9 F-97.6 F 58-82 18-26 125-167/53-102 92-100 Intake & Output 05/19/18 05/20/18 05/21/18 05/22/18 23:59 23:59 23:59 22:59 Intake Total 20 50 Output Total 100 800 Balance -80 -750 Weight 246 lb 6.4 oz 244 lb 11.2 oz obese male V-mask in place not responsive to verbal withdraws from pain heart S1/S2 lungs shallow breathing otherwise clear abd obese CBC, BMP 05/22/18 05:30 05/22/18 05:30 Laboratory Last Values PT with INR 12.40 SEC (9.7-13.0) 05/21/18 08:07 INR 1.05 (0.83-1.09) 05/21/18 08:07 PTT (Actin FS) 31.1 SECONDS (25.2-36.5) 05/21/18 08:07 Anticoagulation Therapy No Result Required. 05/21/18 09:54 Puncture Site No Result Required. 05/21/18 09:54 ABG pH 7.29 (7.35-7.45) L 05/21/18 09:54 ABG pCO2 at Pt Temp 58.6 mmHg (35-45) H 05/21/18 09:54 ABG pO2 at Pt Temp 175.0 mmHg (68-100) H* 05/21/18 09:54 ABG HCO3 27.1 meq/L (22-26) H 05/21/18 09:54 ABG O2 Sat (Measured) 97.5 % (90-98.9) 05/21/18 09:54 ABG O2 Content 14.9 % vol (15-22) L 05/21/18 09:54 ABG Base Excess 0.1 meq/l (-2-2) 05/21/18 09:54 Doc Test Not applicable 05/21/18 09:54 VBG pH 7.25 (7.32-7.42) L 05/21/18 08:07 POC VBG pCO2 66.7 mmHg (38-52) H* 05/21/18 08:07 POC VBG pO2 94.9 mmHg (28-48) H 05/21/18 08:07 Mixed VBG HCO3 27.9 meq/L (19-25) H 05/21/18 08:07 Carboxyhemoglobin 0.8 gm% (0.5-2.0) 05/21/18 09:54 Methemoglobin 1.5 % (0.4-1.5) 05/21/18 09:54 O2 Delivery Device No Result Required. 05/21/18 09:54 Oxygen Flow Rate Yes 05/21/18 09:54 Vent Mode No Result Required. 05/21/18 09:54 Vent Rate No Result Required. 05/21/18 09:54 Mechanical Rate No Result Required. 05/21/18 09:54 Pressure Support Vent No Result Required. 05/21/18 09:54 Sodium 138 mmol/L (136-145) 05/22/18 05:30 Potassium 4.9 mmol/L (3.5-5.1) 05/22/18 05:30 Chloride 101 mmol/L (98-107) 05/22/18 05:30 Carbon Dioxide 31 mmol/L (21-32) 05/22/18 05:30 Anion Gap 6 MMOL/L (8-16) L 05/22/18 05:30 BUN 62 mg/dL (7-18) H 05/22/18 05:30 Creatinine 2.5 mg/dL (0.55-1.3) H 05/22/18 05:30 Creat Clearance w eGFR 24.55 (>60) 05/22/18 05:30 Random Glucose 137 mg/dL (74-106) H 05/22/18 05:30 Lactic Acid 0.7 mmol/L (0.4-2.0) 05/21/18 08:07 Calcium 8.1 mg/dL (8.5-10.1) L 05/22/18 05:30 Total Bilirubin 0.6 mg/dL (0.2-1) 05/22/18 05:30 AST 13 U/L (15-37) L 05/22/18 05:30 ALT 25 U/L (13-61) 05/22/18 05:30 Alkaline Phosphatase 110 U/L (45-117) 05/22/18 05:30 Troponin I 0.05 ng/ml (0.00-0.05) 05/21/18 08:07 B-Natriuretic Peptide 3620.6 pg/ml (5-450) H 05/21/18 08:07 Total Protein 6.6 g/dl (6.4-8.2) 05/22/18 05:30 Albumin 2.8 g/dl (3.4-5.0) L 05/22/18 05:30 Urine Color Yellow 05/21/18 11:30 Urine Appearance Cloudy 05/21/18 11:30 Urine pH 5.0 (5.0-8.0) 05/21/18 11:30 Ur Specific [place] 1.017 (1.010-1.035) 05/21/18 11:30 Urine Protein 2+ (NEGATIVE) H 05/21/18 11:30 Urine Glucose (UA) Negative (NEGATIVE) 05/21/18 11:30 Urine Ketones Negative (NEGATIVE) 05/21/18 11:30 Urine Blood 3+ (NEGATIVE) H 05/21/18 11:30 Urine Nitrite Negative (NEGATIVE) 05/21/18 11:30 Urine Bilirubin Negative (<2.0 mg/dL) 05/21/18 11:30 Urine Urobilinogen Negative mg/dL (0.2-1.0) 05/21/18 11:30 Ur Leukocyte Esterase Negative (NEGATIVE) 05/21/18 11:30 Urine WBC (Auto) 65 /hpf (3-5) 05/21/18 11:30 Urine RBC (Auto) 195 /hpf (0-3) 05/21/18 11:30 Urine Mucus Rare 05/21/18 11:30 Microbiology 05/21/18 08:00 Urine For Antigen Detection Legionella Antigen - Final 05/21/18 08:00 Urine For Antigen Detection Streptococcus pneumoniae Antigen (M - Final 05/21/18 11:30 Urine - Urine Clean Catch Urine Culture - Final NO GROWTH OBTAINED 05/21/18 08:07 Blood - Peripheral Venous Blood Culture - Preliminary NO GROWTH OBTAINED AFTER 24 HOURS, INCUBATION TO CONTINUE FOR 4 DAYS. 05/21/18 08:07 Blood - Peripheral Venous Blood Culture - Preliminary NO GROWTH OBTAINED AFTER 24 HOURS, INCUBATION TO CONTINUE FOR 4 DAYS. Active Medications Albuterol/Ipratropium (Duoneb -) 1 amp NEB Q4H PRN PRN Reason: SHORTNESS OF BREATH Albuterol/Ipratropium (Duoneb -) 1 amp NEB RQID [facility]IN[facility] Last Admin: 05/22/18 12:59 Dose: 1 amp Heparin Sodium (Porcine) (Heparin -) 5,000 unit SQ TID [facility]STINEE Last Admin: 05/22/18 15:14 Dose: 5,000 unit Ceftriaxone Sodium 2 gm/ (Dextrose) 100 mls @ 200 mls/hr IVPB DAILY [facility]; Protocol Last Admin: 05/22/18 15:19 Dose: 200 mls/hr Methylprednisolone Sodium Succinate (Solu-Medrol -) 60 mg IVPUSH Q8H-IV [facility] Last Admin: 05/22/18 11:00 Dose: 60 mg Pantoprazole Sodium (Protonix Iv) 40 mg IVPUSH DAILY [facility] Assmet Aspiration PNA Acute Kidney Failure COPD HTN HLD Severe Dementia DNR / DNI palliate care discussed prognosis extensively with family son and daughter,and daughter in law along with present at bedside all questions and concerns discussed with them --- they understand he may be transferred out of ICU to medical vences tonight. stresses goals of comfort care, children present agree. Problem List - Problems (1) Aspiration pneumonia of right lung Code(s): J69.0 - PNEUMONITIS DUE TO INHALATION OF FOOD AND VOMIT (2) COPD (chronic obstructive pulmonary disease) Code(s): J44.9 - CHRONIC OBSTRUCTIVE PULMONARY DISEASE, UNSPECIFIED (3) Dementia Code(s): F03.90 - UNSPECIFIED DEMENTIA WITHOUT BEHAVIORAL DISTURBANCE (4) Hypertension Code(s): I10 - ESSENTIAL (PRIMARY) HYPERTENSION
[2018-05-22] MEDS: PANTOPRAZOLE SODIUM 40 MG VIAL IVPUSH SCH (17:33)
[2018-05-22] MEDS ORDERED: MORPHINE SULFATE 2 MG/ML VIAL IVPUSH ONE (19:32)
[2018-05-22] MEDS ORDERED: PT OWN MED DRAWER 7, Y5N ONE (20:49)
[2018-05-23] MEDS: methylPREDNISolone NA SUCC 125 MG/2 ML VIAL IVPUSH SCH ×3 (02:45→17:38)
[2018-05-23] MEDS: HEPARIN NA (PORCINE) 5,000 UNITS/ML 1ML VIAL SQ SCH ×3 (05:21→22:06)
[2018-05-23 07:21] LABS: BASO % 0.1 % (0-2.0); HEMOGLOBIN 10.4 GM/dL (11.7-16.9); LYMPH % 1.1 % (8-40); MCHC 33.7 g/dl (32.0-35.9); MEAN CELL VOLUME 94.9 fl (80-96); MEAN PLT VOLUME 9.1 fl (7.5-11.1); MONO % 3.9 % (3.8-10.2); NEUT % 94.9 % (42.8-82.8); PLATELET COUNT 119 K/MM3 (134-434); RBC 3.27 M/mm3 (4.00-5.60); RDW 17.9 % (11.9-15.9); WHITE BLOOD COUNT 13.6 K/mm3 (4.0-10.0)
[2018-05-23 07:52] LABS: ALBUMIN 2.8 g/dl (3.4-5.0); ALK PHOS 99 U/L (45-117); ANION GAP 8 MMOL/L (8-16); BILIRUBIN,TOTAL 0.3 mg/dL (0.2-1); BLOOD UREA NITROGEN 77 mg/dL (7-18); CALCIUM 8.1 mg/dL (8.5-10.1); CHLORIDE 102 mmol/L (98-107); CO2 29 mmol/L (21-32); CREATININE 2.7 mg/dL (0.55-1.3); GLUCOSE,RANDOM 120 mg/dL (74-106); MAGNESIUM 2.8 mg/dL (1.8-2.4); POTASSIUM 5.4 mmol/L (3.5-5.1); SGOT/AST 13 U/L (15-37); SGPT/ALT 25 U/L (13-61); SODIUM 140 mmol/L (136-145); TOT PROT 6.7 g/dl (6.4-8.2)
[2018-05-23] MEDS ORDERED: PT OWN MED DRAWER 7, Y5N ONE ×2 (10:34→15:57)
[2018-05-23] MEDS ORDERED: DEXTROSE 5%-WATER 100 ML IVPB ONE (10:35)
[2018-05-23] MEDS: CEFTRIAXONE 2 GM in DEXTROSE 5%-WATER 100 ML IVPB SCH (10:36)
--- NOTE | 2018-05-23 11:33 | PN ---
Progress Note (short form) - Note Progress Note: no bipap last night a bit more responsive Vital Signs Period Temp Pulse Resp BP Sys/Patel Pulse Ox Last 24 Hr 97.3 F-97.6 F 63-78 16-32 101-168/44-77 93-96 neck supple cor-rrr lungs decreased bs at bases abd soft,nt ext trace edema +alejandro CBC, BMP 05/23/18 06:50 05/23/18 06:50 Microbiology 05/21/18 08:07 Blood - Peripheral Venous Blood Culture - Preliminary NO GROWTH OBTAINED AFTER 48 HOURS, INCUBATION TO CONTINUE FOR 3 DAYS. 05/21/18 08:07 Blood - Peripheral Venous Blood Culture - Preliminary NO GROWTH OBTAINED AFTER 48 HOURS, INCUBATION TO CONTINUE FOR 3 DAYS. 05/21/18 08:00 Urine For Antigen Detection Legionella Antigen - Final 05/21/18 08:00 Urine For Antigen Detection Streptococcus pneumoniae Antigen (M - Final 05/21/18 11:30 Urine - Urine Clean Catch Urine Culture - Final NO GROWTH OBTAINED Current Medications Albuterol/Ipratropium (Duoneb -) 1 amp NEB Q4H PRN PRN Reason: SHORTNESS OF BREATH Albuterol/Ipratropium (Duoneb -) 1 amp NEB RQID DESTINEE Last Admin: 05/22/18 20:35 Dose: 1 amp Heparin Sodium (Porcine) (Heparin -) 5,000 unit SQ TID DESTINEE Last Admin: 05/23/18 05:21 Dose: 5,000 unit Ceftriaxone Sodium 2 gm/ (Dextrose) 100 mls @ 200 mls/hr IVPB DAILY DESTINEE; Protocol Last Admin: 05/23/18 10:36 Dose: 200 mls/hr Methylprednisolone Sodium Succinate (Solu-Medrol -) 60 mg IVPUSH Q8H-IV [facility]INEE Last Admin: 05/23/18 10:36 Dose: 60 mg Pantoprazole Sodium (Protonix Iv) 40 mg IVPUSH DAILY [facility] Last Admin: 05/22/18 17:33 Dose: 40 mg a/p pneumococcal pneumonia worsening dementia dnr/dni nate day #2 antibiotics continue ceftriaxone Problem List - Problems (1) Aspiration pneumonia of right lung Code(s): J69.0 - PNEUMONITIS DUE TO INHALATION OF FOOD AND VOMIT (2) Respiratory failure with hypoxia and hypercapnia Code(s): J96.91 - RESPIRATORY FAILURE, UNSPECIFIED WITH HYPOXIA; J96.92 - RESPIRATORY FAILURE, UNSPECIFIED WITH HYPERCAPNIA (3) Dementia Code(s): F03.90 - UNSPECIFIED DEMENTIA WITHOUT BEHAVIORAL DISTURBANCE (4) NATE (acute kidney injury) Code(s): N17.9 - ACUTE KIDNEY FAILURE, UNSPECIFIED
--- NOTE | 2018-05-23 12:44 | PN ---
Teaching Attending Note Name of Resident: Rajan Martinez ATTENDING PHYSICIAN STATEMENT I saw and evaluated the patient. I reviewed the resident's note and discussed the case with the resident. I agree with the resident's findings and plan as documented. SUBJECTIVE: Patient seen and examined in the ICU. Poorly responsive but in NAD on VM O2. Coarse audible breath sounds. Intake & Output 05/21/18 05/22/18 05/22/18 05/23/18 00:59 00:59 23:59 23:59 Intake Total 0 Output Total 250 Balance -250 Weight 239 lb Last Vital Signs Temp Pulse Resp BP Pulse Ox 98.7 F 66 20 126/51 L 100 05/23/18 10:00 05/23/18 11:48 05/23/18 11:48 05/23/18 11:48 05/23/18 11:48 Active Medications Albuterol/Ipratropium (Duoneb -) 1 amp NEB Q4H PRN PRN Reason: SHORTNESS OF BREATH Albuterol/Ipratropium (Duoneb -) 1 amp NEB RQID [facility]STINEE Last Admin: 05/22/18 20:35 Dose: 1 amp Heparin Sodium (Porcine) (Heparin -) 5,000 unit SQ TID DESTINEE Last Admin: 05/23/18 05:21 Dose: 5,000 unit Ceftriaxone Sodium 2 gm/ (Dextrose) 100 mls @ 200 mls/hr IVPB DAILY [facility]; Protocol Last Admin: 05/23/18 10:36 Dose: 200 mls/hr Methylprednisolone Sodium Succinate (Solu-Medrol -) 60 mg IVPUSH Q8H-IV [facility] Last Admin: 05/23/18 10:36 Dose: 60 mg Pantoprazole Sodium (Protonix Iv) 40 mg IVPUSH DAILY [facility] Last Admin: 05/22/18 17:33 Dose: 40 mg PE: Gen: obtunded, mild respiratory distress HEENT: trach midline, upper airway secretions PULM: coarse rhonchi, abdominal breathing CV: tachy, regular ABD: obese, soft EXT: 1+ dependent edema Neuro: poorly responsive, withdrawals to noxious bilaterally Laboratory Results - last 24 hr 05/23/18 05/23/18 06:50 06:50 WBC 13.6 H RBC 3.27 L Hgb 10.4 L Hct 31.0 L MCV 94.9 MCH 32.0 MCHC 33.7 RDW 17.9 H Plt Count 119 L MPV 9.1 Absolute Neuts (auto) 12.9 H Neutrophils % 94.9 H Lymphocytes % 1.1 L D Monocytes % 3.9 Eosinophils % 0.0 D Basophils % 0.1 Nucleated RBC % 0 Sodium 140 Potassium 5.4 H Chloride 102 Carbon Dioxide 29 Anion Gap 8 BUN 77 H Creatinine 2.7 H Creat Clearance w eGFR 22.47 Random Glucose 120 H Calcium 8.1 L Phosphorus 7.0 H Magnesium 2.8 H Total Bilirubin 0.3 AST 13 L ALT 25 Alkaline Phosphatase 99 Total Protein 6.7 Albumin 2.8 L IMP: Acute Respiratory Failure due to Multilobar Pneumococcal PNA Advancing Dementia NATE PLAN: ABX per ID Aspiration precautions O2 as needed No further NIPPV per 's wishes DNR/DNI Floor Dr Gould
[2018-05-23] MEDS: PANTOPRAZOLE SODIUM 40 MG VIAL IVPUSH SCH (12:55)
--- NOTE | 2018-05-23 13:58 | PN ---
Physical Exam: SUBJECTIVE: Patient seen and examined in the ICU. Poorly responsive but in NAD on VM O2. DNR/DNI. accompanied by /HCP OBJECTIVE: Vital Signs Period Temp Pulse Resp BP Sys/Patel Pulse Ox Last 24 Hr 97.3 F-98.7 F 63-78 16-32 101-168/44-77 93-100 GENERAL: obtunded on NIV HEENT: NCAT, trach midline, upper airway secretions NECK: supple PULM: coarse rhonchi b/l, abdominal breathing CV: RRR s1 s2 no m/r/g ABD: obese, soft NTND + BS EXT: 1+ dependent edema Neuro: poorly responsive, withdrawals to noxious stimuli bilaterally Laboratory Results - last 24 hr 05/23/18 05/23/18 06:50 06:50 WBC 13.6 H RBC 3.27 L Hgb 10.4 L Hct 31.0 L MCV 94.9 MCH 32.0 MCHC 33.7 RDW 17.9 H Plt Count 119 L MPV 9.1 Absolute Neuts (auto) 12.9 H Neutrophils % 94.9 H Lymphocytes % 1.1 L D Monocytes % 3.9 Eosinophils % 0.0 D Basophils % 0.1 Nucleated RBC % 0 Sodium 140 Potassium 5.4 H Chloride 102 Carbon Dioxide 29 Anion Gap 8 BUN 77 H Creatinine 2.7 H Creat Clearance w eGFR 22.47 Random Glucose 120 H Calcium 8.1 L Phosphorus 7.0 H Magnesium 2.8 H Total Bilirubin 0.3 AST 13 L ALT 25 Alkaline Phosphatase 99 Total Protein 6.7 Albumin 2.8 L Active Medications Generic Name Dose Route Start Last Admin Trade Name [place] PRN Reason Stop Dose Admin Albuterol/Ipratropium 1 amp 05/21/18 15:48 Duoneb - NEB Q4H PRN SHORTNESS OF BREATH Albuterol/Ipratropium 1 amp 05/21/18 16:00 05/22/18 20:35 Duoneb - NEB 1 amp RQID DESTINEE Administration Heparin Sodium (Porcine) 5,000 unit 05/21/18 22:00 05/23/18 05:21 Heparin - SQ 5,000 unit TID DESTINEE Administration Ceftriaxone Sodium 2 gm/ 100 mls @ 200 mls/hr 05/22/18 13:15 05/23/18 10:36 Dextrose IVPB 200 mls/hr DAILY DESTINEE Administration Protocol Methylprednisolone Sodium Succinate 60 mg 11/03/18 18:00 05/23/18 10:36 Solu-Medrol - IVPUSH 60 mg Q8H-IV DESTINEE Administration Pantoprazole Sodium 40 mg 05/22/18 10:00 05/23/18 12:55 Protonix Iv IVPUSH 40 mg DAILY [facility]STINEE Administration ASSESSMENT/PLAN: 87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 Neuro obtunded on NIV dementia stable Cardio maintain MAP >65 Qtc 435 cardiac monitoring Pulm/Infx Acute Respiratory Failure due to Multilobar Pneumococcal PNA maintain O2 > 90%, O2 prn No further NIPPV per 's wishes DNR/DNI Aspiration precautions c/w CTX Duoneb solumedrol RENAL NATE vs CKD monitor Cr and lytes FEN hold off on IVF at this time replete prn NPO pending speech swallow eval, pt at risk for aspiration. palliative care consult, will discuss possibility of NGT ppx SQH protonix Dispo NPO pending speech swallow eval, pt at risk for aspiration. palliative care consult, will discuss possibility of NGT pt stable and ready for transfer to [facility]. further care per primary team/PCP Visit type - Emergency Visit Emergency Visit: Yes ED Registration Date: 05/21/18 Care time: The patient presented to the Emergency Department on the above date and was hospitalized for further evaluation of their emergent condition. - New Patient This patient is new to me today: Yes Date on this admission: 05/23/18 - Critical Care Critical Care patient: Yes Total Critical Care Time (in minutes): 35 Critical Care Statement: The care of this patient involved high complexity decision making to prevent further life threatening deterioration of the patient 's condition and/or to evaluate & treat vital organ system(s) failure or risk of failure.
[2018-05-23 14:42] LABS: ANISOCYTOSIS 1+; MACROCYTOSIS 1+; OVALOCYTE 1+; PLATELET ESTIMATE DECREASED
[2018-05-23] MEDS: ALBUTEROL SO4 2.5/IPRATROPIUM 0.5 INH SOL 3 ML VIAL.NEB. NEB SCH ×3 (16:00→22:02)
--- NOTE | 2018-05-23 16:08 | CONSULT ---
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 Found to have multifocal pneumonia and respiratory failure, made DNR/DNI. Pt seen on VM, not arousable. Right side and head with constant tremor. o2 sat at 97%. Thought to be Co2 retention. Placed on CPAP with elimination of tremor. Still not arousable. Pt was feeding himself reg food/thin liquid without reports of signs of aspiration. He fed himself and was not impulsive. He has been confused with difficulty expressing himself. He is DNR/DNI pending Hospice, [place]. History Source: Family Member, Medical Record Limitations to Obtaining History: Clinical Condition, Dementia - Past Medical History MONUMENTAL STONEMASON: Yes: Dementia Cardiovascular: Yes: CHF, HTN Pulmonary: Yes: COPD - Advance Directives Advance Directives: Yes: DNR - Smoking History Smoking history: Unknown if ever smoked Have you smoked in the past 12 months: No - Alcohol/Substance Use Hx Alcohol Use: No History of Substance Use: reports: None - Social History ADL: Support Services Occupation: retired physician History of Recent Travel: No History - Admission Reason For Visit: ALTERED MENTAL STATUS - Diagnostics X-ray: Report Reviewed - General Mental Status: Lethargic Attention: Unresponsive - Hearing Hearing: Impaired Hearing Aide: No (lost in NH) Recommendations - Speech Evaluation, Impression/Plan Impression: Unresponsive. PO trials not given. Educated pt's on plan for PO trials if pt becomes alert. - Dysphagia Impressions/Plan Dysphagia Impressions: Suspect Aspiration
[2018-05-23] MEDS ORDERED: MORPHINE SULFATE 2 MG/ML VIAL IVPUSH ONE (17:06)
--- NOTE | 2018-05-23 17:38 | PN ---
Progress Note (short form) - Note Progress Note: patient seen and examined in ICU at bedside discussed prognosis with aware this is likely a terminal event On ventimask -- O2 sat 96 was given morphine yesterday for comfort Vital Signs Period Temp Pulse Resp BP Sys/Patel Pulse Ox Last 24 Hr 97.5 F-98.7 F 63-76 16-32 101-150/44-77 93-100 Intake & Output 05/21/18 05/22/18 05/22/18 05/23/18 00:59 00:59 23:59 23:59 Intake Total 0 Output Total 500 Balance -500 Weight 239 lb obese male V-mask in place not responsive to verbal withdraws from pain heart S1/S2 lungs shallow breathing with scattered rhonchi abd obese soft ext + pulses CBC, BMP 05/23/18 06:50 05/23/18 06:50 CBC, BMP 05/22/18 05:30 05/22/18 05:30 Microbiology 05/21/18 04:00 Urine For Antigen Detection Legionella Antigen - Final 05/21/18 04:00 Urine For Antigen Detection Streptococcus pneumoniae Antigen (M - Final 05/21/18 08:07 Blood - Peripheral Venous Blood Culture - Preliminary NO GROWTH OBTAINED AFTER 48 HOURS, INCUBATION TO CONTINUE FOR 3 DAYS. 05/21/18 08:07 Blood - Peripheral Venous Blood Culture - Preliminary NO GROWTH OBTAINED AFTER 48 HOURS, INCUBATION TO CONTINUE FOR 3 DAYS. 05/21/18 08:00 Urine For Antigen Detection Legionella Antigen - Final 05/21/18 08:00 Urine For Antigen Detection Streptococcus pneumoniae Antigen (M - Final 05/21/18 11:30 Urine - Urine Clean Catch Urine Culture - Final NO GROWTH OBTAINED Active Medications Albuterol/Ipratropium (Duoneb -) 1 amp NEB Q4H PRN PRN Reason: SHORTNESS OF BREATH Albuterol/Ipratropium (Duoneb -) 1 amp NEB RQID [facility]STINEE Last Admin: 05/22/18 20:35 Dose: 1 amp Heparin Sodium (Porcine) (Heparin -) 5,000 unit SQ TID DESTINEE Last Admin: 05/23/18 16:07 Dose: 5,000 unit Ceftriaxone Sodium 2 gm/ (Dextrose) 100 mls @ 200 mls/hr IVPB DAILY [facility]; Protocol Last Admin: 05/23/18 10:36 Dose: 200 mls/hr Methylprednisolone Sodium Succinate (Solu-Medrol -) 60 mg IVPUSH Q8H-IV [facility] Last Admin: 05/23/18 10:36 Dose: 60 mg Pantoprazole Sodium (Protonix Iv) 40 mg IVPUSH DAILY [facility] Last Admin: 05/23/18 12:55 Dose: 40 mg Assmet Aspiration PNA Acute Kidney Failure with further deterioration COPD HTN HLD Severe Dementia DNR / DNI palliate care discussed prognosis extensively with family they agree and understand Discussed with transfer to medical vences and comfort care Problem List - Problems (1) Aspiration pneumonia of right lung Code(s): J69.0 - PNEUMONITIS DUE TO INHALATION OF FOOD AND VOMIT (2) COPD (chronic obstructive pulmonary disease) Code(s): J44.9 - CHRONIC OBSTRUCTIVE PULMONARY DISEASE, UNSPECIFIED (3) Dementia Code(s): F03.90 - UNSPECIFIED DEMENTIA WITHOUT BEHAVIORAL DISTURBANCE (4) Hypertension Code(s): I10 - ESSENTIAL (PRIMARY) HYPERTENSION
[2018-05-24] MEDS: methylPREDNISolone NA SUCC 125 MG/2 ML VIAL IVPUSH SCH ×3 (01:18→17:00)
[2018-05-24] MEDS: HEPARIN NA (PORCINE) 5,000 UNITS/ML 1ML VIAL SQ SCH ×3 (05:52→22:20)
[2018-05-24 06:14] LABS: BASO % 0.2 % (0-2.0); HEMATOCRIT 28.5 % (35.4-49); HEMOGLOBIN 9.6 GM/dL (11.7-16.9); LYMPH % 1.1 % (8-40); MCH 31.7 pg (25.7-33.7); MCHC 33.6 g/dl (32.0-35.9); MEAN CELL VOLUME 94.5 fl (80-96); MEAN PLT VOLUME 9.6 fl (7.5-11.1); MONO % 5.1 % (3.8-10.2); NEUT % 93.6 % (42.8-82.8); PLATELET COUNT 146 K/MM3 (134-434); RBC 3.02 M/mm3 (4.00-5.60); RDW 17.5 % (11.9-15.9); WHITE BLOOD COUNT 7.1 K/mm3 (4.0-10.0)
[2018-05-24 07:17] LABS: ALBUMIN 2.8 g/dl (3.4-5.0); ALK PHOS 90 U/L (45-117); ANION GAP 8 MMOL/L (8-16); BILIRUBIN,TOTAL 0.3 mg/dL (0.2-1); BLOOD UREA NITROGEN 99 mg/dL (7-18); CALCIUM 7.9 mg/dL (8.5-10.1); CHLORIDE 106 mmol/L (98-107); CO2 31 mmol/L (21-32); CREATININE 2.9 mg/dL (0.55-1.3); GLUCOSE,RANDOM 122 mg/dL (74-106); POTASSIUM 5.2 mmol/L (3.5-5.1); SGOT/AST 7 U/L (15-37); SGPT/ALT 22 U/L (13-61); SODIUM 145 mmol/L (136-145); TOT PROT 6.3 g/dl (6.4-8.2)
[2018-05-24] MEDS: ALBUTEROL SO4 2.5/IPRATROPIUM 0.5 INH SOL 3 ML VIAL.NEB. NEB SCH ×4 (08:20→20:58)
[2018-05-24 09:50] LABS: ANISOCYTOSIS 0; MACROCYTOSIS 0; PLATELET ESTIMATE NORMAL
[2018-05-24] MEDS ORDERED: DEXTROSE 5%-WATER 100 ML IVPB ONE (10:11)
[2018-05-24] MEDS: CEFTRIAXONE 2 GM in DEXTROSE 5%-WATER 100 ML IVPB SCH (10:14)
[2018-05-24] MEDS ORDERED: morphine CARPU-JECT 2 MG/1 ML DISP.SYRIN IVPUSH PRN (10:16)
[2018-05-24] MEDS: PANTOPRAZOLE SODIUM 40 MG VIAL IVPUSH SCH (10:17)
[2018-05-24] MEDS ORDERED: MORPHINE SULFATE 2 MG/ML VIAL IVPUSH PRN (10:18)
[2018-05-24] MEDS ORDERED: morphine SULFATE 4 MG/ML VIAL ONE ×2 (11:07→16:35)
[2018-05-24] MEDS: morphine CARPU-JECT 4 MG/1 ML DISP.SYRIN IVPUSH SCH ×2 (11:08→16:37)
--- NOTE | 2018-05-24 12:02 | PN ---
Teaching Attending Note Name of Resident: Rajan Martinez ATTENDING PHYSICIAN STATEMENT I saw and evaluated the patient. I reviewed the resident's note and discussed the case with the resident. I agree with the resident's findings and plan as documented. SUBJECTIVE: Patient seen and examined in the ICU. Making non-purposeful movements on NIPPVV. requested last night due to increased respiratory distress. Coarse audible breath sounds. Intake & Output 05/22/18 05/22/18 05/23/18 05/24/18 00:59 23:59 23:59 23:59 Intake Total 0 100 Output Total 700 300 Balance -700 -200 Weight 239 lb 238 lb 1 oz Last Vital Signs Temp Pulse Resp BP Pulse Ox 98.8 F 80 18 144/54 L 100 05/24/18 10:10 05/24/18 10:10 05/24/18 10:10 05/24/18 10:10 05/24/18 08:27 Active Medications Albuterol/Ipratropium (Duoneb -) 1 amp NEB Q4H PRN PRN Reason: SHORTNESS OF BREATH Albuterol/Ipratropium (Duoneb -) 1 amp NEB RQID [facility] Last Admin: 05/24/18 08:20 Dose: 1 amp Heparin Sodium (Porcine) (Heparin -) 5,000 unit SQ TID [facility] Last Admin: 05/24/18 05:52 Dose: 5,000 unit Ceftriaxone Sodium 2 gm/ (Dextrose) 100 mls @ 200 mls/hr IVPB DAILY [facility]; Protocol Last Admin: 05/24/18 10:14 Dose: 200 mls/hr Methylprednisolone Sodium Succinate (Solu-Medrol -) 60 mg IVPUSH Q8H-IV [facility] Last Admin: 05/24/18 10:15 Dose: 60 mg Morphine Sulfate (Morphine Injection -) 4 mg IVPUSH Q6H [facility] Last Admin: 05/24/18 11:08 Dose: 4 mg Morphine Sulfate (Morphine Sulfate) 2 mg IVPUSH Q1H PRN PRN Reason: PAIN LEVEL 1-5 Pantoprazole Sodium (Protonix Iv) 40 mg IVPUSH DAILY [facility] Last Admin: 05/24/18 10:17 Dose: 40 mg PE: Gen: obtunded, mild respiratory distress HEENT: trach midline, upper airway secretions PULM: coarse rhonchi, abdominal breathing CV: tachy, regular ABD: obese, soft EXT: 1+ dependent edema Neuro: spontaneous non-purposeful movements, not following commands Laboratory Results - last 24 hr 05/23/18 05/24/18 05/24/18 06:50 04:21 05:30 WBC 7.1 RBC 3.02 L Hgb 9.6 L Hct 28.5 L MCV 94.5 MCH 31.7 MCHC 33.6 RDW 17.5 H Plt Count 146 D MPV 9.6 Absolute Neuts (auto) 6.6 Neutrophils % 93.6 H Neutrophils % (Manual) 89.0 H 86.9 H Band Neutrophils % 5.0 0.0 Lymphocytes % 1.1 L Lymphocytes % (Manual) 1.0 L 1.0 L Monocytes % 5.1 Monocytes % (Manual) 2 L 8 D Eosinophils % 0.0 Eosinophils % (Manual) 0.0 0.0 Basophils % 0.2 Basophils % (Manual) 0.0 0.0 Myelocytes % (Man) 2 1 D Promyelocytes % (Man) 0 0 Blast Cells % (Manual) 0 0 Nucleated RBC % 0 Metamyelocytes 1 3 H D Hypochromia 0 0 Platelet Estimate Decreased Normal Polychromasia 1+ 0 Poikilocytosis 1+ 1+ Basophilic Stippling 1+ Anisocytosis 1+ 0 Microcytosis 0 2+ Macrocytosis 1+ 0 Ovalocytes 1+ Stomatocytes 1+ Sodium Potassium Chloride Carbon Dioxide Anion Gap BUN Creatinine Creat Clearance w eGFR POC Glucometer [phone] Random Glucose Calcium Phosphorus Magnesium Total Bilirubin AST ALT Alkaline Phosphatase Total Protein Albumin 05/24/18 05:30 WBC RBC Hgb Hct MCV MCH MCHC RDW Plt Count MPV Absolute Neuts (auto) Neutrophils % Neutrophils % (Manual) Band Neutrophils % Lymphocytes % Lymphocytes % (Manual) Monocytes % Monocytes % (Manual) Eosinophils % Eosinophils % (Manual) Basophils % Basophils % (Manual) Myelocytes % (Man) Promyelocytes % (Man) Blast Cells % (Manual) Nucleated RBC % Metamyelocytes Hypochromia Platelet Estimate Polychromasia Poikilocytosis Basophilic Stippling Anisocytosis Microcytosis Macrocytosis Ovalocytes Stomatocytes Sodium 145 Potassium 5.2 H Chloride 106 Carbon Dioxide 31 Anion Gap 8 BUN 99 H Creatinine 2.9 H Creat Clearance w eGFR 20.69 POC Glucometer Random Glucose 122 H Calcium 7.9 L Phosphorus 5.0 H Magnesium 3.0 H Total Bilirubin 0.3 AST 7 L ALT 22 Alkaline Phosphatase 90 Total Protein 6.3 L Albumin 2.8 L IMP: Acute Respiratory Failure due to Multilobar Pneumococcal PNA Advancing Dementia NATE PLAN: ABX per ID Aspiration precautions O2 as needed NIPPV for now per 's wishes DNR/DNI has agreed to MS standing and PRN for comfort measures Floor Dr Gould
--- NOTE | 2018-05-24 13:30 | PN ---
Physical Exam: SUBJECTIVE: Patient seen and examined in the ICU. Poorly responsive but in NAD on Bipap. DNR/DNI. accompanied by /HCP. Yesterday GOC initiated by palliative care OBJECTIVE: Vital Signs Period Temp Pulse Resp BP Sys/Patel Pulse Ox Last 24 Hr 98 F-98.8 F 61-80 16-25 101-145/44-65 97-100 GENERAL: obtunded on NIV HEENT: NCAT, trach midline, upper airway secretions NECK: supple PULM: coarse rhonchi b/l, abdominal breathing CV: RRR s1 s2 no m/r/g ABD: obese, soft NTND + BS EXT: 1+ dependent edema Neuro: poorly responsive, withdrawals to noxious stimuli bilaterally Laboratory Results - last 24 hr 05/23/18 05/24/18 05/24/18 06:50 04:21 05:30 WBC 7.1 RBC 3.02 L Hgb 9.6 L Hct 28.5 L MCV 94.5 MCH 31.7 MCHC 33.6 RDW 17.5 H Plt Count 146 D MPV 9.6 Absolute Neuts (auto) 6.6 Neutrophils % 93.6 H Neutrophils % (Manual) 89.0 H 86.9 H Band Neutrophils % 5.0 0.0 Lymphocytes % 1.1 L Lymphocytes % (Manual) 1.0 L 1.0 L Monocytes % 5.1 Monocytes % (Manual) 2 L 8 D Eosinophils % 0.0 Eosinophils % (Manual) 0.0 0.0 Basophils % 0.2 Basophils % (Manual) 0.0 0.0 Myelocytes % (Man) 2 1 D Promyelocytes % (Man) 0 0 Blast Cells % (Manual) 0 0 Nucleated RBC % 0 Metamyelocytes 1 3 H D Hypochromia 0 0 Platelet Estimate Decreased Normal Polychromasia 1+ 0 Poikilocytosis 1+ 1+ Basophilic Stippling 1+ Anisocytosis 1+ 0 Microcytosis 0 2+ Macrocytosis 1+ 0 Ovalocytes 1+ Stomatocytes 1+ Sodium Potassium Chloride Carbon Dioxide Anion Gap BUN Creatinine Creat Clearance w eGFR POC Glucometer [phone] Random Glucose Calcium Phosphorus Magnesium Total Bilirubin AST ALT Alkaline Phosphatase Total Protein Albumin 05/24/18 05:30 WBC RBC Hgb Hct MCV MCH MCHC RDW Plt Count MPV Absolute Neuts (auto) Neutrophils % Neutrophils % (Manual) Band Neutrophils % Lymphocytes % Lymphocytes % (Manual) Monocytes % Monocytes % (Manual) Eosinophils % Eosinophils % (Manual) Basophils % Basophils % (Manual) Myelocytes % (Man) Promyelocytes % (Man) Blast Cells % (Manual) Nucleated RBC % Metamyelocytes Hypochromia Platelet Estimate Polychromasia Poikilocytosis Basophilic Stippling Anisocytosis Microcytosis Macrocytosis Ovalocytes Stomatocytes Sodium 145 Potassium 5.2 H Chloride 106 Carbon Dioxide 31 Anion Gap 8 BUN 99 H Creatinine 2.9 H Creat Clearance w eGFR 20.69 POC Glucometer Random Glucose 122 H Calcium 7.9 L Phosphorus 5.0 H Magnesium 3.0 H Total Bilirubin 0.3 AST 7 L ALT 22 Alkaline Phosphatase 90 Total Protein 6.3 L Albumin 2.8 L Active Medications Generic Name Dose Route Start Last Admin Trade Name Freq PRN Reason Stop Dose Admin Albuterol/Ipratropium 1 amp 05/21/18 15:48 Duoneb - NEB Q4H PRN SHORTNESS OF BREATH Albuterol/Ipratropium 1 amp 05/21/18 16:00 05/24/18 08:20 Duoneb - NEB 1 amp RQID [facility] Administration Heparin Sodium (Porcine) 5,000 unit 05/21/18 22:00 05/24/18 05:52 Heparin - SQ 5,000 unit TID [facility] Administration Ceftriaxone Sodium 2 gm/ 100 mls @ 200 mls/hr 05/22/18 13:15 05/24/18 10:14 Dextrose IVPB 200 mls/hr DAILY [facility] Administration Protocol Methylprednisolone Sodium Succinate 60 mg 05/21/18 18:00 05/24/18 10:15 Solu-Medrol - IVPUSH 60 mg Q8H-IV [facility] Administration Morphine Sulfate 4 mg 05/24/18 10:30 05/24/18 11:08 Morphine Injection - IVPUSH 4 mg Q6H [facility] Administration Morphine Sulfate 2 mg 05/24/18 10:18 Morphine Sulfate IVPUSH Q1H PRN PAIN LEVEL 1-5 Pantoprazole Sodium 40 mg 05/22/18 10:00 05/24/18 10:17 Protonix Iv IVPUSH 40 mg DAILY [facility] Administration ASSESSMENT/PLAN: 87 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 Neuro obtunded on NIPPV dementia stable Cardio maintain MAP >65 Qtc 435 cardiac monitoring Pulm/Infx Acute Respiratory Failure due to Multilobar Pneumococcal PNA maintain O2 > 90% NIPPV for now per 's wishes DNR/DNI Aspiration precautions c/w CTX Duoneb solumedrol has agreed to morphine standing and PRN for comfort measures RENAL NATE vs CKD monitor Cr and lytes FEN hold off on IVF at this time replete prn Unresponsive. PO trials not given per speech and swallow ppx SQH protonix Dispo DNR/DNI pt stable and ready for transfer [facility]. further care per primary team/PCP Visit type - Emergency Visit Emergency Visit: Yes ED Registration Date: 05/21/18 Care time: The patient presented to the Emergency Department on the above date and was hospitalized for further evaluation of their emergent condition. - New Patient This patient is new to me today: Yes Date on this admission: 05/24/18 - Critical Care Critical Care patient: Yes Total Critical Care Time (in minutes): 36 Critical Care Statement: The care of this patient involved high complexity decision making to prevent further life threatening deterioration of the patient 's condition and/or to evaluate & treat vital organ system(s) failure or risk of failure.
[2018-05-24] MEDS ORDERED: ALBUTEROL SO4 2.5/IPRATROPIUM 0.5 INH SOL 3 ML VIAL.NEB. NEB PRN (18:01)
[2018-05-24] MEDS ORDERED: morphine SULFATE 4 MG/ML VIAL IVPUSH SCH (19:00)
[2018-05-24] MEDS: morphine SULFATE 4 MG/ML VIAL IVPUSH SCH (22:20)
[2018-05-25] MEDS: methylPREDNISolone NA SUCC 40 MG/1 ML VIAL IVPUSH SCH ×3 (02:42→17:36)
[2018-05-25] MEDS: morphine SULFATE 4 MG/ML VIAL IVPUSH SCH ×3 (04:57→16:54)
[2018-05-25] MEDS: HEPARIN NA (PORCINE) 5,000 UNITS/ML 1ML VIAL SQ SCH ×3 (06:29→22:16)
[2018-05-25 07:27] LABS: BASO % 0.6 % (0-2.0); EOS % 1.2 % (0-4.5); HEMATOCRIT 27.6 % (35.4-49); HEMOGLOBIN 8.8 GM/dL (11.7-16.9); LYMPH % 1.6 % (8-40); MCH 30.1 pg (25.7-33.7); MCHC 31.9 g/dl (32.0-35.9); MEAN CELL VOLUME 94.6 fl (80-96); MEAN PLT VOLUME 9.9 fl (7.5-11.1); MONO % 6.5 % (3.8-10.2); NEUT % 90.1 % (42.8-82.8); PLATELET COUNT 149 K/MM3 (134-434); RBC 2.92 M/mm3 (4.00-5.60); RDW 17.9 % (11.9-15.9); WHITE BLOOD COUNT 5.4 K/mm3 (4.0-10.0)
[2018-05-25] MEDS: ALBUTEROL SO4 2.5/IPRATROPIUM 0.5 INH SOL 3 ML VIAL.NEB. NEB SCH ×4 (08:17→21:19)
[2018-05-25 08:23] LABS: ALBUMIN 2.7 g/dl (3.4-5.0); ALK PHOS 82 U/L (45-117); ANION GAP 5 MMOL/L (8-16); BILIRUBIN,TOTAL 0.4 mg/dL (0.2-1); CHLORIDE 110 mmol/L (98-107); CO2 33 mmol/L (21-32); CREATININE 2.6 mg/dL (0.55-1.3); GLUCOSE,RANDOM 127 mg/dL (74-106); MAGNESIUM 3.5 mg/dL (1.8-2.4); PHOSPHOROUS 5.5 mg/dL (2.5-4.9); POTASSIUM 5.2 mmol/L (3.5-5.1); SGOT/AST 7 U/L (15-37); SGPT/ALT 18 U/L (13-61); SODIUM 147 mmol/L (136-145)
[2018-05-25 08:26] LABS: BLOOD UREA NITROGEN 113 mg/dL (7-18)
[2018-05-25] MEDS ORDERED: DEXTROSE 5%-WATER 100 ML IVPB ONE (09:43)
[2018-05-25] MEDS: PANTOPRAZOLE SODIUM 40 MG VIAL IVPUSH SCH (10:16)
[2018-05-25] MEDS: CEFTRIAXONE 2 GM in DEXTROSE 5%-WATER 100 ML IVPB SCH (10:21)
[2018-05-25 11:15] LABS: ANISOCYTOSIS 1+; MACROCYTOSIS 1+; OVALOCYTE 1+; TARGET CELLS 1+
--- NOTE | 2018-05-25 11:32 | PN ---
Progress Note (short form) - Note Progress Note: patient seen and examined on medical vences and aide at bedside discussed prognosis with she is agreeable to IV fluids and wishes to maintain medical care aware this is likely a terminal event On bipap -- O2 sat 96 Vital Signs Period Temp Pulse Resp BP Sys/Patel Pulse Ox Last 24 Hr 97.4 F-98 F 55-91 14-16 134-162/54-90 96-100 Intake & Output 05/22/18 05/23/18 05/24/18 05/25/18 23:59 23:59 23:59 23:59 Intake Total 0 110 Output Total 700 800 Balance -700 -690 Weight 239 lb 238 lb 1 oz obese male bipap in place not responsive to verbal withdraws from pain atempts to pull ask off heart S1/S2 lungs shallow breathing otherwise clear abd obese ext no edema CBC, BMP 05/25/18 06:10 05/25/18 06:10 CBC, BMP 05/22/18 05:30 05/22/18 05:30 Microbiology 05/21/18 08:07 Blood - Peripheral Venous Blood Culture - Preliminary NO GROWTH OBTAINED AFTER 96 HOURS, INCUBATION TO CONTINUE FOR 1 DAYS. 05/21/18 08:07 Blood - Peripheral Venous Blood Culture - Preliminary NO GROWTH OBTAINED AFTER 96 HOURS, INCUBATION TO CONTINUE FOR 1 DAYS. 05/21/18 04:00 Urine For Antigen Detection Legionella Antigen - Final 05/21/18 04:00 Urine For Antigen Detection Streptococcus pneumoniae Antigen (M - Final 05/21/18 08:00 Urine For Antigen Detection Legionella Antigen - Final 05/21/18 08:00 Urine For Antigen Detection Streptococcus pneumoniae Antigen (M - Final 05/21/18 11:30 Urine - Urine Clean Catch Urine Culture - Final NO GROWTH OBTAINED Active Medications Albuterol/Ipratropium (Duoneb -) 1 amp NEB Q4H PRN PRN Reason: SHORTNESS OF BREATH Albuterol/Ipratropium (Duoneb -) 1 amp NEB RQID [facility] Last Admin: 05/25/18 08:17 Dose: 1 amp Heparin Sodium (Porcine) (Heparin -) 5,000 unit SQ TID [facility] Last Admin: 05/25/18 06:29 Dose: 5,000 unit Ceftriaxone Sodium 2 gm/ (Dextrose) 100 mls @ 200 mls/hr IVPB DAILY [facility]; Protocol Last Admin: 05/25/18 10:21 Dose: 200 mls/hr Methylprednisolone Sodium Succinate (Solu-Medrol -) 60 mg IVPUSH Q8H-IV [facility] Last Admin: 05/25/18 10:18 Dose: 60 mg Morphine Sulfate (Morphine Sulfate) 2 mg IVPUSH Q1H PRN PRN Reason: PAIN LEVEL 1-5 Morphine Sulfate (Morphine Sulfate) 4 mg IVPUSH Q6H [facility] Last Admin: 05/25/18 10:17 Dose: 4 mg Pantoprazole Sodium (Protonix Iv) 40 mg IVPUSH DAILY [facility] Last Admin: 05/25/18 10:16 Dose: 40 mg Assmet Aspiration PNA Acute Kidney Failure COPD HTN HLD Severe Dementia DNR / DNI palliate care discussed goals of care -- comfort and maintain management agrees to IV fluids -- she is "looking into" hospice care for transfer Problem List - Problems (1) Aspiration pneumonia of right lung Code(s): J69.0 - PNEUMONITIS DUE TO INHALATION OF FOOD AND VOMIT (2) COPD (chronic obstructive pulmonary disease) Code(s): J44.9 - CHRONIC OBSTRUCTIVE PULMONARY DISEASE, UNSPECIFIED (3) Dementia Code(s): F03.90 - UNSPECIFIED DEMENTIA WITHOUT BEHAVIORAL DISTURBANCE (4) Hypertension Code(s): I10 - ESSENTIAL (PRIMARY) HYPERTENSION
[2018-05-25 11:37] LABS: PLATELET ESTIMATE ADEQUATE
--- NOTE | 2018-05-25 11:38 | PN ---
Progress Note (short form) - Note Progress Note: patient seen and examined in ICU and aide at bedside discussed prognosis with wishes to maintain medical care aware this is likely a terminal event On bipap -- O2 sat 96 Vital Signs Period Temp Pulse Resp BP Sys/Patel Pulse Ox Last 24 Hr 97.4 F-98 F 55-91 14-16 134-162/54-90 96-100 obese male bipap in place not responsive to verbal withdraws from pain moves UE heart S1/S2 lungs shallow breathing otherwise clear abd obese ext no edema CBC, BMP 05/22/18 05:30 05/22/18 05:30 Microbiology 05/21/18 08:07 Blood - Peripheral Venous Blood Culture - Preliminary NO GROWTH OBTAINED AFTER 96 HOURS, INCUBATION TO CONTINUE FOR 1 DAYS. 05/21/18 08:07 Blood - Peripheral Venous Blood Culture - Preliminary NO GROWTH OBTAINED AFTER 96 HOURS, INCUBATION TO CONTINUE FOR 1 DAYS. 05/21/18 04:00 Urine For Antigen Detection Legionella Antigen - Final 05/21/18 04:00 Urine For Antigen Detection Streptococcus pneumoniae Antigen (M - Final 05/21/18 08:00 Urine For Antigen Detection Legionella Antigen - Final 05/21/18 08:00 Urine For Antigen Detection Streptococcus pneumoniae Antigen (M - Final 05/21/18 11:30 Urine - Urine Clean Catch Urine Culture - Final NO GROWTH OBTAINED Active Medications Albuterol/Ipratropium (Duoneb -) 1 amp NEB Q4H PRN PRN Reason: SHORTNESS OF BREATH Albuterol/Ipratropium (Duoneb -) 1 amp NEB RQID [facility] Last Admin: 05/25/18 08:17 Dose: 1 amp Heparin Sodium (Porcine) (Heparin -) 5,000 unit SQ TID [facility] Last Admin: 05/25/18 06:29 Dose: 5,000 unit Ceftriaxone Sodium 2 gm/ (Dextrose) 100 mls @ 200 mls/hr IVPB DAILY [facility]; Protocol Last Admin: 05/25/18 10:21 Dose: 200 mls/hr Methylprednisolone Sodium Succinate (Solu-Medrol -) 60 mg IVPUSH Q8H-IV [facility] Last Admin: 05/25/18 10:18 Dose: 60 mg Morphine Sulfate (Morphine Sulfate) 2 mg IVPUSH Q1H PRN PRN Reason: PAIN LEVEL 1-5 Morphine Sulfate (Morphine Sulfate) 4 mg IVPUSH Q6H [facility] Last Admin: 05/25/18 10:17 Dose: 4 mg Pantoprazole Sodium (Protonix Iv) 40 mg IVPUSH DAILY [facility] Last Admin: 05/25/18 10:16 Dose: 40 mg Assmet Aspiration PNA Acute Kidney Failure COPD HTN HLD Severe Dementia DNR / DNI palliate care discussed goals of care -- comfort and maintain management -- she is "looking into" hospice care for transfer has discussed all decisions with older son Antonio - all in agreement is HCP Problem List - Problems (1) Aspiration pneumonia of right lung Code(s): J69.0 - PNEUMONITIS DUE TO INHALATION OF FOOD AND VOMIT (2) COPD (chronic obstructive pulmonary disease) Code(s): J44.9 - CHRONIC OBSTRUCTIVE PULMONARY DISEASE, UNSPECIFIED (3) Dementia Code(s): F03.90 - UNSPECIFIED DEMENTIA WITHOUT BEHAVIORAL DISTURBANCE (4) Hypertension Code(s): I10 - ESSENTIAL (PRIMARY) HYPERTENSION
[2018-05-25] MEDS: DEXTROSE 5%-0.45% SALINE 1,000 ML IV SCH (11:57)
--- NOTE | 2018-05-25 14:30 | PN ---
Progress Note (short form) - Note Progress Note: a bit more responsive receiving ivf on bipap Vital Signs Period Temp Pulse Resp BP Sys/Patel Pulse Ox Last 24 Hr 97.4 F-98 F 55-91 14-20 141-162/54-90 96-98 cor-rrr lungs decreased bs at bases abd soft,nt ext no edema +alejandro CBC, BMP 05/25/18 06:10 05/25/18 06:10 Microbiology 05/21/18 08:07 Blood - Peripheral Venous Blood Culture - Preliminary NO GROWTH OBTAINED AFTER 96 HOURS, INCUBATION TO CONTINUE FOR 1 DAYS. 05/21/18 08:07 Blood - Peripheral Venous Blood Culture - Preliminary NO GROWTH OBTAINED AFTER 96 HOURS, INCUBATION TO CONTINUE FOR 1 DAYS. 05/21/18 04:00 Urine For Antigen Detection Legionella Antigen - Final 05/21/18 04:00 Urine For Antigen Detection Streptococcus pneumoniae Antigen (M - Final 05/21/18 08:00 Urine For Antigen Detection Legionella Antigen - Final 05/21/18 08:00 Urine For Antigen Detection Streptococcus pneumoniae Antigen (M - Final 05/21/18 11:30 Urine - Urine Clean Catch Urine Culture - Final NO GROWTH OBTAINED a/p pneumococcal pneumonia-now afebrile, normal wbc worsening dementia dnr/dni nate day #4 antibiotics continue ceftriaxone would complete 7 days d/w at bedside d/w dr allred Problem List - Problems (1) Aspiration pneumonia of right lung Code(s): J69.0 - PNEUMONITIS DUE TO INHALATION OF FOOD AND VOMIT (2) Respiratory failure with hypoxia and hypercapnia Code(s): J96.91 - RESPIRATORY FAILURE, UNSPECIFIED WITH HYPOXIA; J96.92 - RESPIRATORY FAILURE, UNSPECIFIED WITH HYPERCAPNIA (3) Dementia Code(s): F03.90 - UNSPECIFIED DEMENTIA WITHOUT BEHAVIORAL DISTURBANCE (4) NATE (acute kidney injury) Code(s): N17.9 - ACUTE KIDNEY FAILURE, UNSPECIFIED
--- NOTE | 2018-05-25 17:21 | PN ---
Progress Note, Physician History of Present Illness: PULMONARY POORLY RESPONSIVE ON BIPAP -RESP DISTRESS - Current Medication List Current Medications: Active Medications Albuterol/Ipratropium (Duoneb -) 1 amp NEB Q4H PRN PRN Reason: SHORTNESS OF BREATH Albuterol/Ipratropium (Duoneb -) 1 amp NEB RQID [facility] Last Admin: 05/25/18 12:33 Dose: 1 amp Heparin Sodium (Porcine) (Heparin -) 5,000 unit SQ TID [facility] Last Admin: 05/25/18 13:57 Dose: 5,000 unit Ceftriaxone Sodium 2 gm/ (Dextrose) 100 mls @ 200 mls/hr IVPB DAILY [facility]; Protocol Last Admin: 05/25/18 10:21 Dose: 200 mls/hr Dextrose/Sodium Chloride (D5-1/2ns -) 1,000 mls @ 175 mls/hr IV ASDIR [facility] Last Admin: 05/25/18 11:57 Dose: 175 mls/hr Methylprednisolone Sodium Succinate (Solu-Medrol -) 60 mg IVPUSH Q8H-IV [facility] Last Admin: 05/25/18 10:18 Dose: 60 mg Morphine Sulfate (Morphine Sulfate) 2 mg IVPUSH Q1H PRN PRN Reason: PAIN LEVEL 1-5 Morphine Sulfate (Morphine Sulfate) 4 mg IVPUSH Q6H [facility] Last Admin: 05/25/18 16:54 Dose: Not Given Pantoprazole Sodium (Protonix Iv) 40 mg IVPUSH DAILY [facility] Last Admin: 05/25/18 10:16 Dose: 40 mg - Objective Vital Signs: Vital Signs Temperature 97.7 F 05/25/18 13:44 Pulse Rate 68 05/25/18 13:44 Respiratory Rate 20 05/25/18 13:44 Blood Pressure 142/81 05/25/18 13:44 O2 Sat by Pulse Oximetry (%) 96 05/24/18 21:00 Constitutional: Yes: Well Nourished, Other (POORLY RESPONSIVE) Eyes: Yes: WNL HENT: Yes: WNL, Tonsillar Exudate Cardiovascular: Yes: Regular Rate and Rhythm, S1, S2 Respiratory: Yes: Diminished Gastrointestinal: Yes: Normal Bowel Sounds, Soft Extremities: Yes: WNL Edema: No Labs: CBC, BMP 05/25/18 06:10 05/25/18 06:10 INR, PTT INR 1.05 (0.83-1.09) 05/21/18 08:07 Problem List - Problems (1) NATE (acute kidney injury) Code(s): N17.9 - ACUTE KIDNEY FAILURE, UNSPECIFIED (2) Altered mental status Code(s): R41.82 - ALTERED MENTAL STATUS, UNSPECIFIED (3) Aspiration pneumonia of right lung Code(s): J69.0 - PNEUMONITIS DUE TO INHALATION OF FOOD AND VOMIT (4) COPD (chronic obstructive pulmonary disease) Code(s): J44.9 - CHRONIC OBSTRUCTIVE PULMONARY DISEASE, UNSPECIFIED (5) Respiratory failure with hypoxia and hypercapnia Code(s): J96.91 - RESPIRATORY FAILURE, UNSPECIFIED WITH HYPOXIA; J96.92 - RESPIRATORY FAILURE, UNSPECIFIED WITH HYPERCAPNIA Assessment/Plan IMP: Acute Respiratory Failure due to Multilobar Pneumococcal PNA Advancing Dementia NATE PLAN: ABX per ID Aspiration precautions O2 as needed NIPPV for now per 's wishes DNR/DNI Morphine for comfort care DR OLIVER
[2018-05-25] MEDS: MORPHINE SULFATE 2 MG/ML VIAL IVPUSH PRN ×2 (18:16→22:17)
[2018-05-26] MEDS: morphine SULFATE 4 MG/ML VIAL IVPUSH SCH ×5 (01:18→22:19)
[2018-05-26] MEDS: methylPREDNISolone NA SUCC 40 MG/1 ML VIAL IVPUSH SCH ×3 (01:33→22:18)
[2018-05-26] MEDS: HEPARIN NA (PORCINE) 5,000 UNITS/ML 1ML VIAL SQ SCH ×3 (05:01→22:19)
[2018-05-26 07:27] LABS: BASO % 0.1 % (0-2.0); EOS % 0.1 % (0-4.5); HEMATOCRIT 27.3 % (35.4-49); HEMOGLOBIN 8.6 GM/dL (11.7-16.9); LYMPH % 1.3 % (8-40); MCH 29.9 pg (25.7-33.7); MCHC 31.4 g/dl (32.0-35.9); MEAN CELL VOLUME 95.1 fl (80-96); MEAN PLT VOLUME 8.9 fl (7.5-11.1); MONO % 8.7 % (3.8-10.2); NEUT % 89.8 % (42.8-82.8); PLATELET COUNT 133 K/MM3 (134-434); RBC 2.87 M/mm3 (4.00-5.60); RDW 17.6 % (11.9-15.9); WHITE BLOOD COUNT 5.5 K/mm3 (4.0-10.0)
[2018-05-26 07:47] LABS: ANION GAP 6 MMOL/L (8-16); BLOOD UREA NITROGEN 99 mg/dL (7-18); CALCIUM 7.8 mg/dL (8.5-10.1); CHLORIDE 111 mmol/L (98-107); CO2 32 mmol/L (21-32); CREATININE 2.2 mg/dL (0.55-1.3); GLUCOSE,RANDOM 160 mg/dL (74-106); POTASSIUM 4.9 mmol/L (3.5-5.1); SODIUM 149 mmol/L (136-145)
[2018-05-26] MEDS: ALBUTEROL SO4 2.5/IPRATROPIUM 0.5 INH SOL 3 ML VIAL.NEB. NEB SCH ×4 (07:52→19:08)
[2018-05-26] MEDS ORDERED: DEXTROSE 5%-WATER 100 ML IVPB ONE (10:06)
[2018-05-26 10:15] LABS: ANISOCYTOSIS 2+; MACROCYTOSIS 1+; PLATELET ESTIMATE DECREASED
[2018-05-26] MEDS: MORPHINE SULFATE 2 MG/ML VIAL IVPUSH PRN ×2 (10:15→12:03)
[2018-05-26] MEDS: PANTOPRAZOLE SODIUM 40 MG VIAL IVPUSH SCH (10:15)
--- NOTE | 2018-05-26 10:17 | PN ---
Progress Note (short form) - Note Progress Note: PULMONARY Poorly responsive but comfortable on BiPAP. Vital Signs Period Temp Pulse Resp BP Sys/Patel Pulse Ox Last 24 Hr 97.5 F-98.5 F 54-79 15-20 139-167/65-113 99 Gen: breathing nonlabored on BiPAP Heart: RRR Lung: decreased breath sounds at the bases Abd: soft, nontender Ext: no edema CBC, BMP 05/26/18 06:00 05/26/18 06:00 Active Medications Albuterol/Ipratropium (Duoneb -) 1 amp NEB Q4H PRN PRN Reason: SHORTNESS OF BREATH Albuterol/Ipratropium (Duoneb -) 1 amp NEB RQID [facility] Last Admin: 05/26/18 07:52 Dose: 1 amp Heparin Sodium (Porcine) (Heparin -) 5,000 unit SQ TID [facility] Last Admin: 05/26/18 05:01 Dose: 5,000 unit Ceftriaxone Sodium 2 gm/ (Dextrose) 100 mls @ 200 mls/hr IVPB DAILY [facility]; Protocol Last Admin: 05/25/18 10:21 Dose: 200 mls/hr Dextrose/Sodium Chloride (D5-1/2ns -) 1,000 mls @ 175 mls/hr IV [facility]IR [facility] Last Admin: 05/25/18 11:57 Dose: 175 mls/hr Methylprednisolone Sodium Succinate (Solu-Medrol -) 60 mg IVPUSH Q8H-IV [facility] Last Admin: 05/26/18 01:33 Dose: 60 mg Morphine Sulfate (Morphine Sulfate) 2 mg IVPUSH Q1H PRN PRN Reason: PAIN LEVEL 1-5 Last Admin: 05/25/18 22:17 Dose: 2 mg Morphine Sulfate (Morphine Sulfate) 4 mg IVPUSH Q6H [facility] Last Admin: 05/26/18 04:27 Dose: 4 mg Pantoprazole Sodium (Protonix Iv) 40 mg IVPUSH DAILY [facility] Last Admin: 05/25/18 10:16 Dose: 40 mg A/P Acute Respiratory Failure Multilobar Pneumococcal PNA Sepsis Acute Kidney Injury COPD Advancing Dementia - morphine for comfort - continue antibiotics per ID - will decrease medrol - inhaled bronchodilators - O2 to keep SpO2 >90% - BiPAP as needed - can try ventimask - aspiration precautions - DVT prophylaxis - discussed with at bedside, still unsure which treatments she would want for patient i.e. IVF, BiPAP
[2018-05-26] MEDS: CEFTRIAXONE 2 GM in DEXTROSE 5%-WATER 100 ML IVPB SCH (10:18)
[2018-05-26] MEDS ORDERED: DEXTROSE 5%-0.45% SALINE 1,000 ML IV SCH (12:00)
[2018-05-26] MEDS: DEXTROSE 5%-0.45% SALINE 1,000 ML IV SCH (12:04)
--- NOTE | 2018-05-26 12:41 | PN ---
Progress Note (short form) - Note Progress Note: 87 y/o male found lying comfortably with Bipap in place. Vital Signs Period Temp Pulse Resp BP Sys/Patel Pulse Ox Last 24 Hr 97.5 F-98.5 F 54-79 15-20 139-167/65-113 97-99 CBC, BMP 05/26/18 06:00 05/26/18 06:00 HEENT- Normocephalic Neck- Supple Lungs- CTAB Heart- S1/S2 Abd- soft, obese Ext- No LE edema Active Medications Albuterol/Ipratropium (Duoneb -) 1 amp NEB Q4H PRN PRN Reason: SHORTNESS OF BREATH Albuterol/Ipratropium (Duoneb -) 1 amp NEB RQID [facility] Last Admin: 05/26/18 07:52 Dose: 1 amp Heparin Sodium (Porcine) (Heparin -) 5,000 unit SQ TID [facility] Last Admin: 05/26/18 05:01 Dose: 5,000 unit Ceftriaxone Sodium 2 gm/ (Dextrose) 100 mls @ 200 mls/hr IVPB DAILY [facility]; Protocol Last Admin: 05/26/18 10:18 Dose: 200 mls/hr Methylprednisolone Sodium Succinate (Solu-Medrol -) 40 mg IVPUSH BID [facility] Morphine Sulfate (Morphine Sulfate) 2 mg IVPUSH Q1H PRN PRN Reason: PAIN LEVEL 1-5 Last Admin: 05/26/18 12:03 Dose: 2 mg Morphine Sulfate (Morphine Sulfate) 4 mg IVPUSH Q6H [facility] Last Admin: 05/26/18 10:40 Dose: Not Given Pantoprazole Sodium (Protonix Iv) 40 mg IVPUSH DAILY [facility] Last Admin: 05/26/18 10:15 Dose: 40 mg Assessment Sepsis- Probable WBC ct now 5.5, was 25 COPD/ Aspiration PNA Changed to Ventimask Desatting IV fluids dc'd NATE COPD HTN HLD Severe Dementia DNR / DNI- Palliative care discussed goals of care -- comfort and maintain management Problem List - Problems (1) Aspiration pneumonia of right lung Code(s): J69.0 - PNEUMONITIS DUE TO INHALATION OF FOOD AND VOMIT (2) COPD (chronic obstructive pulmonary disease) Code(s): J44.9 - CHRONIC OBSTRUCTIVE PULMONARY DISEASE, UNSPECIFIED (3) Dementia Code(s): F03.90 - UNSPECIFIED DEMENTIA WITHOUT BEHAVIORAL DISTURBANCE (4) Hypertension Code(s): I10 - ESSENTIAL (PRIMARY) HYPERTENSION
[2018-05-26 13:57] VITALS: BMI 32.3
[2018-05-27] MEDS: morphine SULFATE 4 MG/ML VIAL IVPUSH SCH ×2 (04:03→10:02)
[2018-05-27] MEDS: HEPARIN NA (PORCINE) 5,000 UNITS/ML 1ML VIAL SQ SCH ×3 (05:30→21:29)
[2018-05-27] MEDS: ALBUTEROL SO4 2.5/IPRATROPIUM 0.5 INH SOL 3 ML VIAL.NEB. NEB SCH ×4 (07:25→20:00)
[2018-05-27 07:35] LABS: BASO % 0.2 % (0-2.0); EOS % 0.1 % (0-4.5); HEMATOCRIT 29.3 % (35.4-49); HEMOGLOBIN 9.2 GM/dL (11.7-16.9); LYMPH % 1.1 % (8-40); MCH 30.1 pg (25.7-33.7); MCHC 31.5 g/dl (32.0-35.9); MEAN CELL VOLUME 95.4 fl (80-96); MEAN PLT VOLUME 8.7 fl (7.5-11.1); MONO % 8.7 % (3.8-10.2); NEUT % 89.9 % (42.8-82.8); PLATELET COUNT 153 K/MM3 (134-434); RBC 3.07 M/mm3 (4.00-5.60); RDW 17.6 % (11.9-15.9)
[2018-05-27 08:15] LABS: ALBUMIN 2.9 g/dl (3.4-5.0); ALK PHOS 83 U/L (45-117); ANION GAP 4 MMOL/L (8-16); BILIRUBIN,TOTAL 0.4 mg/dL (0.2-1); BLOOD UREA NITROGEN 95 mg/dL (7-18); CALCIUM 8.4 mg/dL (8.5-10.1); CHLORIDE 115 mmol/L (98-107); CO2 34 mmol/L (21-32); CREATININE 2.2 mg/dL (0.55-1.3); GLUCOSE,RANDOM 130 mg/dL (74-106); POTASSIUM 5.1 mmol/L (3.5-5.1); SGOT/AST 7 U/L (15-37); SGPT/ALT 17 U/L (13-61); SODIUM 153 mmol/L (136-145)
[2018-05-27] MEDS ORDERED: DEXTROSE 5%-WATER 100 ML IVPB ONE (09:45)
[2018-05-27] MEDS: PANTOPRAZOLE SODIUM 40 MG VIAL IVPUSH SCH (10:01)
[2018-05-27] MEDS: CEFTRIAXONE 2 GM in DEXTROSE 5%-WATER 100 ML IVPB SCH (10:02)
[2018-05-27] MEDS: methylPREDNISolone NA SUCC 40 MG/1 ML VIAL IVPUSH SCH ×2 (10:02→21:29)
--- NOTE | 2018-05-27 11:10 | PN ---
Progress Note (short form) - Note Progress Note: 87 y/o male appears comfortable, lying in bed. and private aide at bedside. considered that patient may be getting too much medication. Vital Signs Period Temp Pulse Resp BP Sys/Patel Pulse Ox Last 24 Hr 97.5 F-98.6 F 60-96 20-24 146-165/69-86 91-98 CBC, BMP 05/27/18 06:00 05/27/18 06:00 HEENT- Normocephalic Neck-supple Lungs- diminished at bases Heart- S1/S2 Abd- Obese, nt Ext- B/L LE edema, Rt >LT Active Medications Albuterol/Ipratropium (Duoneb -) 1 amp NEB Q4H PRN PRN Reason: SHORTNESS OF BREATH Albuterol/Ipratropium (Duoneb -) 1 amp NEB RQID [facility] Last Admin: 05/27/18 07:25 Dose: 1 amp Heparin Sodium (Porcine) (Heparin -) 5,000 unit SQ TID [facility] Last Admin: 05/27/18 05:30 Dose: 5,000 unit Ceftriaxone Sodium 2 gm/ (Dextrose) 100 mls @ 200 mls/hr IVPB DAILY [facility]; Protocol Last Admin: 05/27/18 10:02 Dose: 200 mls/hr Methylprednisolone Sodium Succinate (Solu-Medrol -) 40 mg IVPUSH BID [facility] Last Admin: 05/27/18 10:02 Dose: 40 mg Morphine Sulfate (Morphine Sulfate) 2 mg IVPUSH Q1H PRN PRN Reason: PAIN LEVEL 1-5 Last Admin: 05/26/18 12:03 Dose: 2 mg Morphine Sulfate (Morphine Sulfate) 4 mg IVPUSH Q6H [facility] Last Admin: 05/27/18 10:02 Dose: 4 mg Pantoprazole Sodium (Protonix Iv) 40 mg IVPUSH DAILY [facility] Last Admin: 05/27/18 10:01 Dose: 40 mg Assessment Sepsis- Probable WBC ct now 12, was 25 COPD/ Aspiration PNA Changed to Ventimask O2 sat 95% NATE COPD HTN HLD Severe Dementia DNR / DNI- Palliative care discussed goals of care -- comfort and maintain management undecided about hospice. Son/ would like to see how pt manages over weekend. Problem List - Problems (1) Aspiration pneumonia of right lung Code(s): J69.0 - PNEUMONITIS DUE TO INHALATION OF FOOD AND VOMIT (2) COPD (chronic obstructive pulmonary disease) Code(s): J44.9 - CHRONIC OBSTRUCTIVE PULMONARY DISEASE, UNSPECIFIED (3) Dementia Code(s): F03.90 - UNSPECIFIED DEMENTIA WITHOUT BEHAVIORAL DISTURBANCE (4) Hypertension Code(s): I10 - ESSENTIAL (PRIMARY) HYPERTENSION
[2018-05-27] MEDS ORDERED: morphine CARPU-JECT 2 MG/1 ML DISP.SYRIN IVPUSH SCH (11:30)
[2018-05-27] MEDS: MORPHINE SULFATE 2 MG/ML VIAL IVPUSH SCH ×2 (11:46→17:33)
--- NOTE | 2018-05-27 11:54 | PN ---
Progress Note (short form) - Note Progress Note: PULMONARY Poorly responsive Remains on bipap with o2 sat 95%. VSS Gen: breathing nonlabored on BiPAP Heart: RRR Lung: decreased breath sounds at the bases Abd: soft, nontender Ext: anasarca Active Medications noted A/P Acute Respiratory Failure Multilobar Pneumococcal PNA Sepsis Acute Kidney Injury COPD Advancing Dementia - morphine for comfort - continue antibiotics per ID - medrol - inhaled bronchodilators - O2 to keep SpO2 >90% - BiPAP as needed - can try ventimask - aspiration precautions - DVT prophylaxis - discussed with at bedside, she wants to take it day by day Beatrice SINGH MD
[2018-05-27 12:00] LABS: ANISOCYTOSIS 1+; MACROCYTOSIS 0; OVALOCYTE 1+; PLATELET ESTIMATE DECREASED; TARGET CELLS 1+
[2018-05-27] MEDS: MORPHINE SULFATE 2 MG/ML VIAL IVPUSH PRN ×2 (14:48→21:30)
[2018-05-28] MEDS: MORPHINE SULFATE 2 MG/ML VIAL IVPUSH SCH ×4 (00:04→19:34)
[2018-05-28] MEDS: MORPHINE SULFATE 2 MG/ML VIAL IVPUSH PRN ×2 (02:27→13:33)
[2018-05-28] MEDS: HEPARIN NA (PORCINE) 5,000 UNITS/ML 1ML VIAL SQ SCH ×3 (05:47→21:31)
[2018-05-28] MEDS: ALBUTEROL SO4 2.5/IPRATROPIUM 0.5 INH SOL 3 ML VIAL.NEB. NEB SCH ×4 (07:45→21:10)
[2018-05-28] MEDS ORDERED: DEXTROSE 5%-WATER 100 ML IVPB ONE (09:31)
--- NOTE | 2018-05-28 10:15 | PN ---
Progress Note (short form) - Note Progress Note: patient seen and examined in room at bedside discussed prognosis with aware this is likely a terminal event on Bipap Fio2 100% given morphine PRN Iv fluids d/c 2/2 pulmonary congestion Vital Signs Period Temp Pulse Resp BP Sys/Patel Pulse Ox Last 24 Hr 97.5 F-98.5 F 75-92 18-20 155-176/74-89 92-98 obese male bipap responsive to verbal withdraws from pain heart S1/S2 lungs shallow breathing with scattered rhonchi abd obese soft ext + pulses CBC, BMP 05/27/18 06:00 05/27/18 06:00 CBC, BMP 05/23/18 06:50 05/23/18 06:50 Microbiology 05/21/18 08:07 Blood - Peripheral Venous Blood Culture - Final NO GROWTH AFTER 5 DAYS INCUBATION 05/21/18 08:07 Blood - Peripheral Venous Blood Culture - Final NO GROWTH AFTER 5 DAYS INCUBATION 05/21/18 04:00 Urine For Antigen Detection Legionella Antigen - Final 05/21/18 04:00 Urine For Antigen Detection Streptococcus pneumoniae Antigen (M - Final 05/21/18 08:00 Urine For Antigen Detection Legionella Antigen - Final 05/21/18 08:00 Urine For Antigen Detection Streptococcus pneumoniae Antigen (M - Final 05/21/18 11:30 Urine - Urine Clean Catch Urine Culture - Final NO GROWTH OBTAINED Active Medications Albuterol/Ipratropium (Duoneb -) 1 amp NEB Q4H PRN PRN Reason: SHORTNESS OF BREATH Albuterol/Ipratropium (Duoneb -) 1 amp NEB RQID [facility] Last Admin: 05/28/18 07:45 Dose: 1 amp Heparin Sodium (Porcine) (Heparin -) 5,000 unit SQ TID [facility] Last Admin: 05/28/18 05:47 Dose: 5,000 unit Ceftriaxone Sodium 2 gm/ (Dextrose) 100 mls @ 200 mls/hr IVPB DAILY [facility]; Protocol Last Admin: 05/27/18 10:02 Dose: 200 mls/hr Methylprednisolone Sodium Succinate (Solu-Medrol -) 40 mg IVPUSH BID [facility] Last Admin: 05/27/18 21:29 Dose: 40 mg Morphine Sulfate (Morphine Sulfate) 2 mg IVPUSH Q6H PRN PRN Reason: PAIN LEVEL 4 - 6 Last Admin: 05/28/18 02:27 Dose: 2 mg Morphine Sulfate (Morphine Sulfate) 2 mg IVPUSH Q6H [facility] Last Admin: 05/28/18 05:47 Dose: 2 mg Pantoprazole Sodium (Protonix Iv) 40 mg IVPUSH DAILY [facility] Last Admin: 05/27/18 10:01 Dose: 40 mg Assmet Aspiration PNA Acute Kidney Failure with further deterioration COPD HTN HLD Severe Dementia DNR / DNI palliate care discussed prognosis extensively with family they agree and understand Discussed with hospice care -- she will discuss further with eldest son she has been offered Hospice care and is considering Problem List - Problems (1) Aspiration pneumonia of right lung Code(s): J69.0 - PNEUMONITIS DUE TO INHALATION OF FOOD AND VOMIT (2) COPD (chronic obstructive pulmonary disease) Code(s): J44.9 - CHRONIC OBSTRUCTIVE PULMONARY DISEASE, UNSPECIFIED (3) Dementia Code(s): F03.90 - UNSPECIFIED DEMENTIA WITHOUT BEHAVIORAL DISTURBANCE (4) Hypertension Code(s): I10 - ESSENTIAL (PRIMARY) HYPERTENSION
[2018-05-28] MEDS: CEFTRIAXONE 2 GM in DEXTROSE 5%-WATER 100 ML IVPB SCH (10:31)
[2018-05-28] MEDS: PANTOPRAZOLE SODIUM 40 MG VIAL IVPUSH SCH (10:31)
[2018-05-28] MEDS: methylPREDNISolone NA SUCC 40 MG/1 ML VIAL IVPUSH SCH ×2 (10:32→21:24)
--- NOTE | 2018-05-28 11:51 | PN ---
Progress Note (short form) - Note Progress Note: Lethargic on NIPPV. On MS drip. Intake & Output 05/25/18 05/26/18 05/27/18 05/28/18 23:59 23:59 23:59 23:59 Intake Total 1293 2300 100 0 Output Total 1000 1670 653 0349 Balance 293 700 -100 -1300 Last Vital Signs Temp Pulse Resp BP Pulse Ox 98.1 F 92 H 18 162/89 95 05/28/18 06:56 05/28/18 06:56 05/28/18 06:56 05/28/18 06:56 05/28/18 08:09 Active Medications Albuterol/Ipratropium (Duoneb -) 1 amp NEB Q4H PRN PRN Reason: SHORTNESS OF BREATH Albuterol/Ipratropium (Duoneb -) 1 amp NEB RQID [facility] Last Admin: 05/28/18 07:45 Dose: 1 amp Heparin Sodium (Porcine) (Heparin -) 5,000 unit SQ TID [facility] Last Admin: 05/28/18 05:47 Dose: 5,000 unit Ceftriaxone Sodium 2 gm/ (Dextrose) 100 mls @ 200 mls/hr IVPB DAILY [facility]; Protocol Last Admin: 05/28/18 10:31 Dose: 200 mls/hr Methylprednisolone Sodium Succinate (Solu-Medrol -) 40 mg IVPUSH BID [facility] Last Admin: 05/28/18 10:32 Dose: 40 mg Morphine Sulfate (Morphine Sulfate) 2 mg IVPUSH Q6H PRN PRN Reason: PAIN LEVEL 4 - 6 Last Admin: 05/28/18 02:27 Dose: 2 mg Morphine Sulfate (Morphine Sulfate) 2 mg IVPUSH Q6H [facility] Last Admin: 05/28/18 10:32 Dose: 2 mg Pantoprazole Sodium (Protonix Iv) 40 mg IVPUSH DAILY [facility] Last Admin: 05/28/18 10:31 Dose: 40 mg PE: Gen: obtunded, on NIPPV HEENT: upper airway secretions PULM: coarse rhonchi, abdominal breathing CV: tachy, regular ABD: obese, soft EXT: 1+ dependent edema Neuro: poorly responsive Laboratory Results - last 24 hr 05/27/18 06:00 Neutrophils % (Manual) 87.9 H Band Neutrophils % 0.0 Lymphocytes % (Manual) 1.0 L D Monocytes % (Manual) 8 Eosinophils % (Manual) 0.0 Basophils % (Manual) 0.0 Myelocytes % (Man) 1 D Promyelocytes % (Man) 0 Blast Cells % (Manual) 0 Metamyelocytes 1 D Hypochromia 1+ Platelet Estimate Decreased Polychromasia 1+ Poikilocytosis 1+ Anisocytosis 1+ Microcytosis 1+ Macrocytosis 0 Target Cells 1+ Ovalocytes 1+ Fragmented RBCs 1+ IMP: Acute Respiratory Failure due to Multilobar Pneumococcal PNA Advancing Dementia NATE PLAN: NIPPV support, can change to 100% NRBM once family decides on more GOC Aspiration precautions DNR/DNI MS for comfort measures Dr Gould
[2018-05-29] MEDS: MORPHINE SULFATE 2 MG/ML VIAL IVPUSH SCH ×2 (00:33→05:53)
[2018-05-29] MEDS: HEPARIN NA (PORCINE) 5,000 UNITS/ML 1ML VIAL SQ SCH (05:52)
[2018-05-29] MEDS: ALBUTEROL SO4 2.5/IPRATROPIUM 0.5 INH SOL 3 ML VIAL.NEB. NEB SCH ×2 (07:57→12:00)
[2018-05-29 08:31] LABS: ANION GAP 8 MMOL/L (8-16); BLOOD UREA NITROGEN 103 mg/dL (7-18); CALCIUM 8.7 mg/dL (8.5-10.1); CHLORIDE 125 mmol/L (98-107); CO2 32 mmol/L (21-32); CREATININE 3.1 mg/dL (0.55-1.3); GLUCOSE,RANDOM 176 mg/dL (74-106); POTASSIUM 5.2 mmol/L (3.5-5.1)
[2018-05-29 09:05] LABS: SODIUM 165 mmol/L (136-145)
[2018-05-29] MEDS ORDERED: DEXTROSE 5%-WATER 100 ML IVPB ONE (09:24)
[2018-05-29] MEDS: MORPHINE SULFATE 2 MG/ML VIAL IVPUSH PRN (09:37)
[2018-05-29] MEDS: CEFTRIAXONE 2 GM in DEXTROSE 5%-WATER 100 ML IVPB SCH (09:37)
[2018-05-29] MEDS: PANTOPRAZOLE SODIUM 40 MG VIAL IVPUSH SCH (09:37)
[2018-05-29] MEDS: methylPREDNISolone NA SUCC 40 MG/1 ML VIAL IVPUSH SCH (09:37)
--- NOTE | 2018-05-29 13:06 | PN ---
Progress Note (short form) - Note Progress Note: patient seen and examined in room at bedside discussed prognosis with remains on Bipap -- agrees to change to venti mask -- aware will result in desaturation Pulmonary has spoken to oldest son who is in agreement with POC is HCP and has been at bedside daily, she request comfort care and wants to proceed with POC patient is minimally responsive facial pressure [place] 2/2/to bipap +pressure marking on bilat heels 3rd spacing on arms / not weeping Vital Signs Period Temp Pulse Resp BP Sys/Patel Pulse Ox Last 24 Hr 97.5 F-98.5 F 75-92 18-20 155-176/74-89 92-98 obese male bipap responsive to verbal heart S1/S2 lungs shallow breathing with scattered rhonchi abd obese soft ext bilat foot drop / cool to touch / 05/29/18 06 CBC, BMP 05/27/18 06:00 05/27/18 06:00 CBC, BMP 05/23/18 06:50 05/23/18 06:50 Microbiology 05/21/18 08:07 Blood - Peripheral Venous Blood Culture - Final NO GROWTH AFTER 5 DAYS INCUBATION 05/21/18 08:07 Blood - Peripheral Venous Blood Culture - Final NO GROWTH AFTER 5 DAYS INCUBATION 05/21/18 04:00 Urine For Antigen Detection Legionella Antigen - Final 05/21/18 04:00 Urine For Antigen Detection Streptococcus pneumoniae Antigen (M - Final 05/21/18 08:00 Urine For Antigen Detection Legionella Antigen - Final 05/21/18 08:00 Urine For Antigen Detection Streptococcus pneumoniae Antigen (M - Final 05/21/18 11:30 Urine - Urine Clean Catch Urine Culture - Final NO GROWTH OBTAINED Active Medications Albuterol/Ipratropium (Duoneb -) 1 amp NEB Q4H PRN PRN Reason: SHORTNESS OF BREATH Albuterol/Ipratropium (Duoneb -) 1 amp NEB RQID [facility] Last Admin: 05/29/18 07:57 Dose: 1 amp Heparin Sodium (Porcine) (Heparin -) 5,000 unit SQ TID [facility] Last Admin: 05/29/18 05:52 Dose: Not Given Ceftriaxone Sodium 2 gm/ (Dextrose) 100 mls @ 200 mls/hr IVPB DAILY [facility]; Protocol Last Admin: 05/29/18 09:37 Dose: 200 mls/hr Methylprednisolone Sodium Succinate (Solu-Medrol -) 40 mg IVPUSH BID [facility] Last Admin: 05/29/18 09:37 Dose: 40 mg Morphine Sulfate (Morphine Sulfate) 2 mg IVPUSH Q6H PRN PRN Reason: PAIN LEVEL 4 - 6 Last Admin: 05/29/18 09:37 Dose: 2 mg Morphine Sulfate (Morphine Sulfate) 2 mg IVPUSH Q6H [facility] Last Admin: 05/29/18 05:53 Dose: 2 mg Pantoprazole Sodium (Protonix Iv) 40 mg IVPUSH DAILY [facility] Last Admin: 05/29/18 09:37 Dose: 40 mg Assmet Aspiration PNA /respiraoty failure hypernatremia Acute Kidney Failure with further deterioration COPD HTN HLD Severe Dementia DNR / DNI palliate care son Antonio aware and agreement with plans to D/C bipap, aware of consequences Marlin ( HCP) in agreement with plan for comfort care and discontinuation of bipap prognosis - terminal event Problem List - Problems (1) Aspiration pneumonia of right lung Code(s): J69.0 - PNEUMONITIS DUE TO INHALATION OF FOOD AND VOMIT (2) COPD (chronic obstructive pulmonary disease) Code(s): J44.9 - CHRONIC OBSTRUCTIVE PULMONARY DISEASE, UNSPECIFIED (3) Dementia Code(s): F03.90 - UNSPECIFIED DEMENTIA WITHOUT BEHAVIORAL DISTURBANCE (4) Hypertension Code(s): I10 - ESSENTIAL (PRIMARY) HYPERTENSION
[2018-05-29] MEDS ORDERED: MORPHINE SULFATE 2 MG/ML VIAL IVPUSH PRN (13:08)
[2018-05-29 13:22] VITALS: BP 103/46; PULSE 127; TEMP 98.5
--- NOTE | 2018-05-29 13:54 | PN ---
Progress Note (short form) - Note Progress Note: Attending note Called by Nursing staff - for pronouncement of Dr Sesay and private aide at bedside with no spontaneous respiration / no heart beat audible /no corneal reflex Dr Sesay was pronounced at 1:45 PM on 05/29/2018 at bedside will inform the children. Problem List - Problems (1) Aspiration pneumonia of right lung Code(s): J69.0 - PNEUMONITIS DUE TO INHALATION OF FOOD AND VOMIT (2) COPD (chronic obstructive pulmonary disease) Code(s): J44.9 - CHRONIC OBSTRUCTIVE PULMONARY DISEASE, UNSPECIFIED (3) Dementia Code(s): F03.90 - UNSPECIFIED DEMENTIA WITHOUT BEHAVIORAL DISTURBANCE (4) Hypertension Code(s): I10 - ESSENTIAL (PRIMARY) HYPERTENSION
== END 2018-05-29 15:55 | disposition expired | DRG 871 ==
LOC: JER 07:01 → JERBED 12:51 → JICU 21:35 → J7W 05-24 17:58
PROVIDERS: ADMIT Family Medicine; ATTEND Family Medicine
PROC: 5A09557 Assistance with Respiratory Ventilation, Greater than 96 Consecutive Hours, Continuous Positive Airway Pressure (ICD-10-PCS; principal; 2018-05-21)
DX: A41.9 Sepsis, unspecified organism (principal); J69.0 Pneumonitis due to inhalation of food and vomit; J13 Pneumonia due to Streptococcus pneumoniae; J96.02 Acute respiratory failure with hypercapnia; J96.01 Acute respiratory failure with hypoxia; E87.2 Acidosis; N17.9 Acute kidney failure, unspecified; E87.0 Hyperosmolality and hypernatremia; G30.9 Alzheimer's disease, unspecified; F02.80 Dementia in other diseases classified elsewhere, unspecified severity, without behavioral disturbance, psychotic disturbance, mood disturbance, and anxiety; I11.0 Hypertensive heart disease with heart failure; I50.9 Heart failure, unspecified; J44.9 Chronic obstructive pulmonary disease, unspecified; Z66 Do not resuscitate; E66.9 Obesity, unspecified; Z68.32 Body mass index [BMI] 32.0-32.9, adult
CPT/HCPCS: 36415; 36600; 70450-TC; 71045-TC-FY; 80048; 80053; 81003; 81015; 82375; 82803; 82962; 83050; 83605; 83735; 83880; 84100; 84484; 85025; 85027; 85610; 85730; 87040; 87086; 87899; 93005; 93010; 94640; 94660; 99285-25; J0131; J1644